=== PATIENT | male | born 1960 | race Caucasian/White ===

== ENCOUNTER → 2019-04-02 07:26 | Outpatient (CLI) | payer MEDICARE, MEDICAID, SELFPAY ==
--- NOTE | 2019-04-02 07:28 | CA_ITS ---
APPROVED REPORT EXAM: Comprehensive 2D, Doppler, and color-flow Echocardiogram Arabic Linguist: Rachelle Dowd RT(R) Ht: 5 ft 6 in Wt: 174lbs BSA: 1.88 BP: 133/87 mmHg Indications: Congestive Heart Failure, CAD, Hyperlipidemia, Hypertension/HDD 2D Dimensions IVSd 0.80 cm M: 0.6-1.2 LVEF (Visual) 64.00 % PWd 0.80 cm M: 0.6 - 1.2 LVDd 3.80 cm M: 4.2 - 5.9 LVDs 2.50 cm M: 2.5 - 4.0 LVOT 2.20 cm (M/F) 1.5-2.5 M-Mode Dimensions LA Diam 3.00 cm (1.9-4.0) Ao Diam 2.80 cm (2.0-3.7) AV Cusp 1.80 cm (1.5-2.6) LV Diastology E/A Ratio 1.1 MED E' 8.09 (< 7 cm/sec) E'/MED E' Ratio 10.90 (>14) LAT E' 9.85 (<10 cm/sec) E/LAT E' Ratio 9.00 (>14) Mitral Valve MV E Max Kyle. 88.40 (40-130 cm/s) MV A Velocity 77.50 (40-130 cm/s) E/A Ratio 1.10 Left Ventricle Left atrium is mildly enlarged, left ventricle is normal size, mild concentric left ventricular hypertrophy, visually estimated ejection fraction 50% with no regional wall motion abnormality, diastolic parameters are within normal range. Right Ventricle Right atrium and right ventricular normal size and contractility. Aortic Valve Aortic valve is minimally thickened and fibrosed, there is no aortic stenosis aortic insufficiency. Mitral Valve Mitral valve is grossly normal, there is no mitral stenosis, there is mild mitral regurgitation. Tricuspid Valve Tricuspid valve is grossly normal, there is mild tricuspid regurgitation. Tricuspid regurgitation jet velocity is inadequate for calculation of the right ventricular systolic pressure. Pulmonic Valve Pulmonic valve is poorly visualized. Great Vessels Aortic root is normal size. Pericardium No significant pericardial effusion noted. Conclusion 1. Normal left ventricular size, mild concentric left ventricular hypertrophy, visually estimated ejection fraction 50% with no regional wall motion abnormality, diastolic parameters are within normal range. 2. Mild mitral and tricuspid regurgitation 3. No significant pericardial effusion noted, inferior vena cava is normal size with normal inspiratory collapse. Electronically signed by : Prince Akhtar, 04/04/2019 16:30:02
--- NOTE | 2019-04-02 07:28 | CA_ITS ---
APPROVED REPORT Firearms Specialist: CT Laterality: Bilateral Study Quality: Adequate Indications: known SALINAS and due f/u Risk Factors Hypertension: Hyperlipidemia CAD, Medications Plavix Doppler Spectral Velocity Analysis ECA (R) 70.60/ cm/s ECA (L) 101.00/ cm/s dICA (R) 90.40/44.00 cm/s dICA (L) 76.70/37.70 cm/s Liz (R) 111.00/50.30 cm/s Liz (L) 66.60/32.70 cm/s pICA (R) 64.50/27.00 cm/s pICA (L) 54.20/22.80 cm/s dCCA (R) 63.40/17.60 cm/s dCCA (L) 66.00/25.10 cm/s pCCA (R) 60.70/18.20 cm/s pCCA (L) 85.60/22.00 cm/s Vert (R) 29.90/ cm/s Vert (L) 66.00/ cm/s ICA/CCA 1.75 ICA/CCA 1.16 Conclusion Duplex evaluation demonstrates stenosis of the right proximal internal carotid artery <20% Duplex evaluation demonstrates stenosis of the left proximal internal carotid artery <20% Duplex evaluation demonstrates antegrade flow of the bilateral Vertebral Arteries. Electronically signed by : Isaak Butts MD 04/03/2019 16:32:10
--- NOTE | 2019-04-02 09:04 | CT_ITS ---
Procedure: CT ANGIO ABDOMEN PELVIS CLINICAL HISTORY: AAA Abdominal aortic aneurysm COMPARISON: No exams were available for comparison TECHNIQUE: IV Contrast: 100ml Optiray 350 Axial images obtained with sagittal and coronal reformats. All CT scans at the facility use one or more dose reduction, viz: automated exposure control, ma/kV adjustment per patient size (including targeted exams where dose is matched to indication, i.e. head), or iterative reconstruction technique. FINDINGS: There is an 8 mm noncalcified nodule in the right lower lobe There is an aortoiliac stent graft present. The graft begins 2 cm cephalad to the level of the renal arteries. There is no evidence of graft leak. Grafts also involve the common iliacs. Surgical clips are present in the inguinal regions. The aorta measures 2.9 cm transverse and 3 cm AP. Superior mesenteric artery and celiac artery have an unremarkable appearance. The graft begins at the level of the superior mesenteric artery. Pertinent non angiographic findings include sigmoid diverticulosis. No evidence of diverticulitis there is mild thickening of the jejunum. This is of questionable clinical significance and mm due to nondistention. IMPRESSION: Status post aortoiliac stent graft as described above with no evidence of endograft leak. Sigmoid diverticulosis Dictated by: Isaak Butts MD 04/03/2019 18:17 Electronically signed by Isaak Butts MD in [place] 04/04/2019 13:41
[2019-04-02 09:47] LABS: Alanine Aminotransferase 33 U/L (12-78); Albumin Level 3.6 gm/dL (3.4-5.0); Alkaline Phosphatase 84 U/L (46-116); Anion Gap 11.9 mEq/L (5-15); Aspartate Amino Transferase 19 U/L (15-37); Bilirubin,Direct 0.1 mg/dL (0.0-0.2); Bilirubin,Indirect 0.2 mg/dL (0.0-0.9); Bilirubin,Total 0.3 mg/dL (0.2-1.0); Blood Urea Nitrogen 11 mg/dL (7-18); Calcium 9.2 mg/dL (8.5-10.1); Carbon Dioxide 31 mmol/L (21.0-32.0); Chloride 104 mmol/L (98-107); Chol/HDL Ratio 8.7 (1-3.5); Cholesterol 296 mg/dL (140-200); Creatinine,Serum 0.93 mg/dL (0.70-1.30); Estimated Glomerular Filt Rate 83 ml/min (>60); GFR (African American) 101 ML/MIN (>60); Glucose 74 mg/dL (74-106); HDL Cholesterol 34 mg/dL (27-67); Potassium 3.9 mmoL/L (3.5-5.1); Sodium 143 mmol/L (136-145); Total Protein,Serum 6.8 gm/dL (6.4-8.2)
[2019-04-02 09:53] LABS: Triglycerides 500 mg/dL (30-200)
== END ==
PROVIDERS: Visit Provider Urology
DX: I11.0 Hypertensive heart disease with heart failure; I25.10 Atherosclerotic heart disease of native coronary artery without angina pectoris; I65.23 Occlusion and stenosis of bilateral carotid arteries; I71.4 Abdominal aortic aneurysm, without rupture; Z86.79 Personal history of other diseases of the circulatory system; Z98.890 Other specified postprocedural states; E78.49 Other hyperlipidemia
CPT/HCPCS: 36415; 74174; 80048; 80061; 80076; 93306; 93880; Q9967

== ENCOUNTER → 2019-04-02 07:32 | Outpatient (CLI) | payer MEDICARE, SELFPAY | PROVIDERS: Visit Provider Urology | DX: I71.4 Abdominal aortic aneurysm, without rupture (principal) ==

== ENCOUNTER → 2020-06-08 09:19 | Outpatient (CLI) | payer MEDICARE, MEDICAID, SELFPAY ==
[2020-06-08 09:44] LABS: Blood Urea Nitrogen 12 mg/dl (9-20); Estimated Glomerular Filt Rate 76 ml/min (>60); GFR (African American) 92 ML/MIN (>60)
--- NOTE | 2020-06-08 09:49 | CT_ITS ---
Procedure: CT ANGIO ABDOMEN CLINICAL HISTORY: Follow-up abdominal aortic aneurysm COMPARISON: CT CT ANGIO ABDOMEN PELVIS from 04/02/2019 TECHNIQUE: IV Contrast: 100ml Isovue 370 Axial images obtained with sagittal and coronal reformats. All CT scans at the facility use one or more dose reduction, viz: automated exposure control, ma/kV adjustment per patient size (including targeted exams where dose is matched to indication, i.e. head), or iterative reconstruction technique. FINDINGS: Status post aortobifem stent graft placement. No evidence of endo graft leak. There is mild dilatation the abdominal aorta at 2.7 cm transverse and 3 cm AP. No evidence aortic stenosis. Surgical clips are present in the right inguinal area. The stent graft overlies the area of the renal arteries and makes it difficult to exclude stenosis at the ostium of the renal artery on the right. The SMA and celiac have an unremarkable appearance. The ostium of the ADAMARIS appears occluded but the ADAMARIS is patent distal to this region secondary to collaterals. There is a 8 mm nodule in the right middle lobe not significantly changed. The liver, spleen, adrenal glands, pancreas, and kidneys have an unremarkable appearance. Bowel gas pattern is nonspecific. There are few small para-aortic lymph nodes not significantly changed. Degenerative disc disease is present at L5-S1 IMPRESSION: Overall no change status post aortobifem stent graft. No evidence of endo graft leak or other acute anomaly. Please see above for detail. Dictated by: Isaak Butts MD 06/11/2020 07:47 Isaak Butts MD in [facility] 06/11/2020 07:47
[2020-06-08 11:10] LABS: Alanine Aminotransferase 32 U/L (12-78); Albumin Level 4.3 g/dl (3.5-5.0); Alkaline Phosphatase 87 U/L (38-126); Aspartate Amino Transferase 34 U/L (17-59); Bilirubin,Direct 0.1 mg/dl (0.0-0.4); Bilirubin,Indirect 0.4 mg/dL (0.0-0.9); Bilirubin,Total 0.5 mg/dl (0.2-1.3); Bilirubin,Unconjugated 0.4 mg/dL (0.0-1.1); HDL Cholesterol 51 mg/dl (40-60); Total Protein,Serum 7.3 g/dl (6.3-8.2)
[2020-06-08 11:22] LABS: Direct LDL Cholesterol 154.55 mg/dL (100-129)
[2020-06-08 11:28] LABS: Chol/HDL Ratio 6.7 (1-3.5); Cholesterol 342 mg/dl (140-200); Triglycerides 604 mg/dl (30-150)
== END ==
PROVIDERS: Urology; PCP Internal Medicine; Visit Provider Nurse Practitioner Family
DX: E78.5 Hyperlipidemia, unspecified (principal); I25.10 Atherosclerotic heart disease of native coronary artery without angina pectoris; I11.0 Hypertensive heart disease with heart failure; I71.4 Abdominal aortic aneurysm, without rupture; I73.9 Peripheral vascular disease, unspecified; Z95.828 Presence of other vascular implants and grafts; I65.23 Occlusion and stenosis of bilateral carotid arteries
CPT/HCPCS: 74175; 80061; 80076; 82565; 84520; Q9967

== ENCOUNTER → 2020-10-11 11:44 | Outpatient (CLI) | payer MEDICARE, MEDICAID, SELFPAY ==
[2020-10-11 12:48] LABS: Alanine Aminotransferase 43 U/L (12-78); Albumin Level 4.2 g/dl (3.5-5.0); Alkaline Phosphatase 71 U/L (38-126); Aspartate Amino Transferase 45 U/L (17-59); Bilirubin,Indirect 0.7 mg/dL (0.0-0.9); Bilirubin,Total 0.7 mg/dl (0.2-1.3); Bilirubin,Unconjugated 0.8 mg/dL (0.0-1.1); Chol/HDL Ratio 7.1 (1-3.5); Cholesterol 278 mg/dl (140-200); HDL Cholesterol 39 mg/dl (40-60); Total Protein,Serum 6.9 g/dl (6.3-8.2)
[2020-10-11 12:53] LABS: Triglycerides 452 mg/dl (30-150)
[2020-10-11 13:00] LABS: Direct LDL Cholesterol 142.85 mg/dL (100-129)
== END ==
PROVIDERS: Visit Provider Nurse Practitioner Family
DX: E78.01 Familial hypercholesterolemia (principal); E78.1 Pure hyperglyceridemia; I11.0 Hypertensive heart disease with heart failure; I25.10 Atherosclerotic heart disease of native coronary artery without angina pectoris; I50.32 Chronic diastolic (congestive) heart failure; I65.23 Occlusion and stenosis of bilateral carotid arteries; I71.4 Abdominal aortic aneurysm, without rupture; I73.9 Peripheral vascular disease, unspecified; Z86.79 Personal history of other diseases of the circulatory system; Z95.828 Presence of other vascular implants and grafts; Z98.890 Other specified postprocedural states
CPT/HCPCS: 36415; 80061; 80076

== ENCOUNTER → 2021-05-11 12:20 | Outpatient (CLI) | payer MEDICARE, MEDICAID, SELFPAY ==
--- NOTE | 2021-05-11 12:33 | XR_ITS ---
PROCEDURE: XR CHEST 2V CLINICAL HISTORY: ex smoker, headache COMPARISON: No exams were available for comparison FINDINGS: The cardiomediastinal silhouette and pulmonary vascularity are within normal limits. The lungs are clear without infiltrates, suspicious nodules, or pleural effusions. No acute bony abnormalities. IMPRESSION: No acute findings. Dictated by: Dr. Garland Clark MD 05/11/2021 12:50 Dr. Garland Clark MD in [facility] 05/11/2021 12:50
[2021-05-11 12:36] LABS: Basophils # 0.1 K/mm3 (0-0.2); Basophils % 1.2 % (0.1-2.0); Eosinophils # 0.2 K/mm3 (0.0-0.4); Eosinophils % 2.4 % (0.1-12.0); Hematocrit 49.3 % (42.0-52.0); Hemoglobin 16.4 g/dL (14.1-18.0); Lymphocytes # 3.2 K/mm3 (0.7-4.5); Lymphocytes % 34.5 % (10-50); Mean Corpuscular HGB Conc 33.3 g/dL (31.8-35.4); Mean Corpuscular Hemoglobin 32.2 pg (27.0-31.2); Mean Corpuscular Volume 96.8 fl (80-94); Mean Platelet Volume 7.3 fl (7.4-10.4); Monocytes # 0.5 K/mm3 (0.1-1.0); Monocytes % 5.4 % (1.7-9.3); Neutrophils # 5.3 K/mm3 (1.8-7.8); Neutrophils % 56.5 % (37.0-80.0); Platelet Count 218 K/mm3 (142-424); Red Cell Distribution Width 12.7 % (11.5-17.5); White Blood Count 9.3 K/mm3 (4.8-10.8)
--- NOTE | 2021-05-11 12:43 | CT_ITS ---
Procedure: CT ANGIO ABDOMEN CLINICAL HISTORY: AAA COMPARISON: CT CT ANGIO ABDOMEN PELVIS from 04/02/[address] ANGIO ABDOMEN from 06/08/2020 TECHNIQUE: IV Contrast: 100ml Isovue 370 Axial images obtained with sagittal and coronal reformats. All CT scans at the facility use one or more dose reduction, viz: automated exposure control, ma/kV adjustment per patient size (including targeted exams where dose is matched to indication, i.e. head), or iterative reconstruction technique. FINDINGS: Patent bifurcated aortic endograft. No definite evidence of endoleak although there is hyperintensity in a ring-like configuration at the periphery of the excluded aneurysm, this most likely represents intimal calcification and has been stable in configuration since 2019 (however there is no non-contrasted image for comparison). The bilateral external and internal iliac arteries are patent and visualized extent. The celiac, hepatic, right hepatic, left hepatic splenic arteries are all patent. The SMA is patent. The ADAMARIS is patent. Heart is not enlarged. No hepatic lesions are identified. Gallbladder appears unremarkable. Spleen is unremarkable. Kidneys are unremarkable. Ureters are unremarkable and visualized extent. Adrenal glands are unremarkable pancreas is unremarkable. GE junction and stomach are unremarkable. Visualized extent of small bowel and colon is unremarkable except for sigmoid diverticulosis. There is no lymphadenopathy. Soft tissues appear unremarkable. Lung bases appear unremarkable. There is lumbar spondylosis with vacuum disc phenomenon at L4-5 and severe disc space narrowing at L5-S1 with cortical endplate changes.. IMPRESSION: 1. Patent bifurcated aortic endograft with no definite endoleak. 2. Sigmoid diverticulosis. 3. Lumbar spondylosis with degenerative disc disease at L4-5 and L5-S1. Dictated by: Sera Young MD 05/11/2021 15:01 Sera Young MD in [place] 05/11/2021 15:01
--- NOTE | 2021-05-11 12:43 | CT_ITS ---
Procedure: CT ANGIO HEAD CLINICAL HISTORY: CARDOZO, blurred vision, AAA repair, FH of brain aneury COMPARISON: No exams were available for comparison TECHNIQUE: IV Contrast: 100ml Isovue 370 Axial images obtained with sagittal and coronal reformats. All CT scans at the facility use one or more dose reduction, viz: automated exposure control, ma/kV adjustment per patient size (including targeted exams where dose is matched to indication, i.e. head), or iterative reconstruction technique. FINDINGS: The left vertebral artery is dominant. There is a hypoplastic right vertebral artery. There is minimal calcific atherosclerosis of the cavernous segments of the internal carotid arteries. There is likely a tiny 2 millimeter left PCOM aneurysm which is not well appreciated on maximal intensity projection reconstructions. Dural venous sinuses are patent. Orbits are unremarkable. Sinuses are clear. No intraparenchymal lesions are noted. There is no hydrocephalus or midline shift. Palmer-white matter differentiation is preserved. There is no edema. No evidence of prior infarctions. Visualized soft tissues appear unremarkable. Visualized osseous structures appear unremarkable. There is no intracranial intra or extra-axial hemorrhage. IMPRESSION: Probable 2mm left PCOM aneurysm, not well seen on MIP reconstructions. Dictated by: Sera Young MD 05/11/2021 14:47 Sera Young MD in [place] 05/11/2021 14:47
[2021-05-11 12:44] LABS: Alanine Aminotransferase 40 U/L (12-78); Albumin Level 4.3 g/dl (3.5-5.0); Alkaline Phosphatase 71 U/L (38-126); Anion Gap 9.4 mEq/L (5-15); Aspartate Amino Transferase 45 U/L (17-59); Bilirubin,Direct 0.5 mg/dl (0.0-0.4); Bilirubin,Indirect 0.1 mg/dL (0.0-0.9); Bilirubin,Total 0.6 mg/dl (0.2-1.3); Bilirubin,Unconjugated 0.1 mg/dL (0.0-1.1); Blood Urea Nitrogen 9 mg/dl (9-20); Carbon Dioxide 33 mmol/L (22.0-30.0); Chloride 104 mmol/L (98-107); Chol/HDL Ratio 4.7 (1-3.5); Cholesterol 220 mg/dl (140-200); Creatine Kinase 54 U/L (55-170); Estimated Glomerular Filt Rate 98 ml/min (>60); GFR (African American) 119 ML/MIN (>60); Glucose 119 mg/dl (74-100); HDL Cholesterol 47 mg/dl (40-60); Potassium 4.4 mmoL/L (3.5-5.1); Sodium 142 mmol/L (136-145); Total Protein,Serum 7.5 g/dl (6.3-8.2); Triglycerides 338 mg/dl (30-150); VLDL Cholesterol 68 mg/dL (0-40)
[2021-05-11 12:55] LABS: Direct LDL Cholesterol 86.94 mg/dL (100-129)
[2021-05-11 14:30] LABS: Hemoglobin A1C 5.4 % (4.0-6.0)
== END ==
PROVIDERS: PCP Internal Medicine; Visit Provider Physician Assistant
DX: R73.03 Prediabetes (principal); E78.1 Pure hyperglyceridemia; E78.5 Hyperlipidemia, unspecified; I11.0 Hypertensive heart disease with heart failure; I20.9 Angina pectoris, unspecified; I50.30 Unspecified diastolic (congestive) heart failure; I65.29 Occlusion and stenosis of unspecified carotid artery; I71.4 Abdominal aortic aneurysm, without rupture; I73.9 Peripheral vascular disease, unspecified; R06.00 Dyspnea, unspecified; Z86.79 Personal history of other diseases of the circulatory system; Z95.828 Presence of other vascular implants and grafts; Z98.890 Other specified postprocedural states; Z87.891 Personal history of nicotine dependence; H53.8 Other visual disturbances; R51.9 Headache, unspecified
CPT/HCPCS: 36415; 70496; 71046; 74175; 80048; 80061; 80076; 82550; 83036; 85025; Q9967

== ENCOUNTER → 2021-10-26 15:18 | Outpatient (CLI) | payer MEDICARE, MEDICAID, SELFPAY ==
[2021-10-26 15:47] LABS: Basophils # 0.2 K/mm3 (0-0.2); Basophils % 2.1 % (0.1-2.0); Eosinophils # 0.2 K/mm3 (0.0-0.4); Eosinophils % 1.9 % (0.1-12.0); Hematocrit 47.6 % (42.0-52.0); Hemoglobin 15.9 g/dL (14.1-18.0); Lymphocytes % 35.4 % (10-50); Mean Corpuscular HGB Conc 33.5 g/dL (31.8-35.4); Mean Corpuscular Hemoglobin 32.4 pg (27.0-31.2); Mean Corpuscular Volume 96.8 fl (80-94); Mean Platelet Volume 8.2 fl (7.4-10.4); Monocytes # 0.6 K/mm3 (0.1-1.0); Monocytes % 6.7 % (1.7-9.3); Neutrophils # 4.6 K/mm3 (1.8-7.8); Neutrophils % 53.9 % (37.0-80.0); Platelet Count 263 K/mm3 (142-424); Red Blood Count 4.92 M/mm3 (4.60-6.20); Red Cell Distribution Width 13.3 % (11.5-17.5); White Blood Count 8.5 K/mm3 (4.8-10.8)
[2021-10-26 16:27] LABS: Alanine Aminotransferase 48 U/L (12-78); Albumin Level 4.5 g/dl (3.5-5.0); Alkaline Phosphatase 76 U/L (38-126); Anion Gap 9.3 mEq/L (5-15); Aspartate Amino Transferase 49 U/L (17-59); Bilirubin,Direct 0.2 mg/dl (0.0-0.4); Bilirubin,Indirect 0.6 mg/dL (0.0-0.9); Bilirubin,Total 0.8 mg/dl (0.2-1.3); Bilirubin,Unconjugated 0.5 mg/dL (0.0-1.1); Blood Urea Nitrogen 16 mg/dl (9-20); Calcium 9.8 mg/dl (8.4-10.2); Carbon Dioxide 30 mmol/L (22.0-30.0); Chloride 105 mmol/L (98-107); Chol/HDL Ratio 4.1 (1-3.5); Cholesterol 186 mg/dl (140-200); Estimated Glomerular Filt Rate 86 ml/min (>60); GFR (African American) 104 ML/MIN (>60); Glucose 97 mg/dl (74-100); HDL Cholesterol 45 mg/dl (40-60); Magnesium 1.8 mg/dl (1.6-2.3); Potassium 4.3 mmoL/L (3.5-5.1); Sodium 140 mmol/L (136-145); Total Protein,Serum 6.9 g/dl (6.3-8.2)
[2021-10-26 16:38] LABS: Direct LDL Cholesterol 65.21 mg/dL (100-129)
[2021-10-26 16:44] LABS: Free T4 (Free Thyroxine) 0.85 ng/dl (0.78-2.19)
[2021-10-26 16:49] LABS: Triglycerides 413 mg/dl (30-150)
[2021-10-26 16:58] LABS: Thyroid Stimulating Hormone 0.05 uIU/mL (0.465-4.68)
== END ==
PROVIDERS: Visit Provider Internal Medicine
DX: E78.1 Pure hyperglyceridemia (principal); E78.5 Hyperlipidemia, unspecified; I11.0 Hypertensive heart disease with heart failure; I25.10 Atherosclerotic heart disease of native coronary artery without angina pectoris; I71.4 Abdominal aortic aneurysm, without rupture; I73.9 Peripheral vascular disease, unspecified; R51.9 Headache, unspecified; R93.89 Abnormal findings on diagnostic imaging of other specified body structures; Z86.79 Personal history of other diseases of the circulatory system; Z98.890 Other specified postprocedural states
CPT/HCPCS: 36415; 80048; 80061; 80076; 83735; 84439; 84443; 85025

== ENCOUNTER → 2021-11-04 14:27 | Outpatient (CLI) | payer MEDICARE, MEDICAID, SELFPAY ==
--- NOTE | 2021-11-04 14:35 | US_ITS ---
FINAL REPORT CLINICAL HISTORY: hyperthyroidism FINDINGS: THYROID ULTRASOUND Sonographic images of the thyroid was obtained. The right lobe of the thyroid measures 3.6 x 1.4 x 1.0 cm. The left lobe of the thyroid measures 3.4 x 1.2 x 0.9 cm. The isthmus measures 4 mm. IMPRESSION: Unremarkable thyroid evaluation Reviewed, Interpreted and Dictated by Jesse Doty III, MD Transcribed by Tangela Green Authenticated by Jesse Doty III, MD on 11/04/2021 04:05:10 PM [facility]
--- NOTE | 2021-11-04 15:08 | MR_ITS ---
PROCEDURE INFORMATION: Exam: MRA Head Without Contrast; Arteriography Exam date and time: 11/04/2021 4:01 PM Age: 61 years old Clinical indication: Pain; Headache; Additional info: Abnormal cta head, probable 2 mm l-pcom aneurysm. PT states brain aneurysm. Posterior headache with posterior head pain. Episodes of blacking out. TECHNIQUE: Imaging protocol: Magnetic resonance angiography head without contrast. Yart-yg-nzcofl (TOF) technique was utilized for this exam. Exam focused on the arteries. COMPARISON: CT ANGIO HEAD 05/11/2021 1:28 PM FINDINGS: ANTERIOR CIRCULATION: Right internal carotid artery: Intracranial segment is patent with no significant stenosis. No aneurysm. Right middle cerebral artery: No occlusion or significant stenosis. No aneurysm. Right anterior cerebral artery: No occlusion or significant stenosis. No aneurysm. Left internal carotid artery: Intracranial segment is patent with no significant stenosis. No aneurysm. Left middle cerebral artery: No occlusion or significant stenosis. No aneurysm. Left anterior cerebral artery: No occlusion or significant stenosis. No aneurysm. POSTERIOR CIRCULATION: Right vertebral artery: The right vertebral artery is congenitally hypoplastic but patent. Left vertebral artery: No occlusion or significant stenosis. No aneurysm. Basilar artery: No occlusion or significant stenosis. No aneurysm. Right posterior cerebral artery: No occlusion or significant stenosis. No aneurysm. Left posterior cerebral artery: No occlusion or significant stenosis. No aneurysm. Left posterior communicating artery: Infundibular origin of the left posterior communicating artery is present. There is no aneurysm. IMPRESSION: No acute abnormality. No aneurysm.
== END ==
PROVIDERS: Visit Provider Internal Medicine Cardiovascular Disease
DX: E05.90 Thyrotoxicosis, unspecified without thyrotoxic crisis or storm (principal); R93.89 Abnormal findings on diagnostic imaging of other specified body structures
CPT/HCPCS: 70544; 76536

== ENCOUNTER → 2022-05-18 12:00 | Outpatient (CLI) | payer MEDICARE, MEDICAID, SELFPAY ==
[2022-05-18 12:47] LABS: Blood Urea Nitrogen 10 mg/dl (9-20); Estimated Glomerular Filt Rate 86 ml/min (>60); GFR (African American) 103 ML/MIN (>60)
--- NOTE | 2022-05-18 12:54 | CT_ITS ---
FINAL REPORT TECHNIQUE: Pre-and postcontrast images of the abdomen were performed by computed tomography. Extensive 3-D reconstruction images were performed. A CTA was performed. This study was performed with techniques to keep radiation doses as low as reasonably achievable (ALARA). Individualized dose reduction techniques using automated exposure control or adjustment of mA and/or kV according to the patient''s size were employed. CLINICAL HISTORY: AAA repair FOLLOW-UP COMPARISON: 05/11/2021 FINDINGS: ABDOMEN: There is mild bibasilar atelectasis. Precontrast images demonstrate no evidence of nephrolithiasis. No adrenal masses are identified. The liver, spleen and pancreas are unremarkable. The appendix is normal. CTA: An aortic stent graft is present and patent. There is no evidence of graft endoleak. Findings appear stable since previous. The SMA, celiac axis, and ADAMARIS are patent. There is no significant stenosis or calcification. The renal arteries are patent bilaterally. IMPRESSION: Aortic stent graft is patent without evidence of endoleak. Reviewed, Interpreted and Dictated by Jesse Doty III, MD Transcribed by Maeve Torres Authenticated and [facility]
== END ==
PROVIDERS: Visit Provider Nurse Practitioner
DX: E78.01 Familial hypercholesterolemia (principal); E78.1 Pure hyperglyceridemia; I11.0 Hypertensive heart disease with heart failure; I25.10 Atherosclerotic heart disease of native coronary artery without angina pectoris; I50.32 Chronic diastolic (congestive) heart failure; I65.23 Occlusion and stenosis of bilateral carotid arteries; I73.9 Peripheral vascular disease, unspecified; Z86.79 Personal history of other diseases of the circulatory system; Z95.828 Presence of other vascular implants and grafts; Z98.890 Other specified postprocedural states; I71.40 Abdominal aortic aneurysm, without rupture, unspecified
CPT/HCPCS: 36415; 74175; 82565; 84520; Q9967

== ENCOUNTER → 2022-11-06 10:52 | Outpatient (CLI) | payer MEDICARE, MEDICAID, SELFPAY ==
[2022-11-06 11:36] LABS: Basophils # 0.1 K/mm3 (0-0.2); Basophils % 1.3 % (0.1-2.0); Eosinophils # 0.2 K/mm3 (0.0-0.4); Eosinophils % 2.6 % (0.1-12.0); Hematocrit 47.2 % (42.0-52.0); Hemoglobin 15.6 g/dL (14.1-18.0); Lymphocytes # 2.7 K/mm3 (0.7-4.5); Lymphocytes % 30.9 % (10-50); Mean Corpuscular Hemoglobin 31.5 pg (27.0-31.2); Mean Corpuscular Volume 95.4 fl (80-94); Mean Platelet Volume 7.8 fl (7.4-10.4); Monocytes # 0.5 K/mm3 (0.1-1.0); Neutrophils # 5.1 K/mm3 (1.8-7.8); Neutrophils % 59.2 % (37.0-80.0); Platelet Count 218 K/mm3 (142-424); Red Blood Count 4.95 M/mm3 (4.60-6.20); White Blood Count 8.6 K/mm3 (4.8-10.8)
[2022-11-06 12:07] LABS: Alanine Aminotransferase 38 U/L (12-78); Albumin Level 4.5 g/dl (3.5-5.0); Alkaline Phosphatase 67 U/L (38-126); Anion Gap 8.7 mEq/L (5-15); Aspartate Amino Transferase 40 U/L (17-59); Bilirubin,Indirect 0.7 mg/dL (0.0-0.9); Bilirubin,Total 0.7 mg/dl (0.2-1.3); Bilirubin,Unconjugated 0.8 mg/dL (0.0-1.1); Blood Urea Nitrogen 13 mg/dl (9-20); Calcium 9.6 mg/dl (8.4-10.2); Carbon Dioxide 33 mmol/L (22.0-30.0); Chloride 103 mmol/L (98-107); Chol/HDL Ratio 4.8 (1-3.5); Cholesterol 240 mg/dl (140-200); Estimated Glomerular Filt Rate 76 ml/min (>60); GFR (African American) 92 ML/MIN (>60); Glucose 105 mg/dl (74-100); HDL Cholesterol 50 mg/dl (40-60); Magnesium 2.1 mg/dl (1.6-2.3); Potassium 4.7 mmoL/L (3.5-5.1); Sodium 140 mmol/L (136-145); Total Protein,Serum 7.3 g/dl (6.3-8.2)
[2022-11-06 12:18] LABS: Direct LDL Cholesterol 78.56 mg/dL (100-129)
[2022-11-06 12:19] LABS: Triglycerides 608 mg/dl (30-150)
[2022-11-06 12:23] LABS: Free T4 (Free Thyroxine) 0.95 ng/dl (0.78-2.19)
[2022-11-06 12:38] LABS: Thyroid Stimulating Hormone 1.67 uIU/mL (0.465-4.68)
== END ==
PROVIDERS: Visit Provider Nurse Practitioner
DX: I25.10 Atherosclerotic heart disease of native coronary artery without angina pectoris; E78.01 Familial hypercholesterolemia; E78.1 Pure hyperglyceridemia; I11.0 Hypertensive heart disease with heart failure; I50.32 Chronic diastolic (congestive) heart failure; I65.23 Occlusion and stenosis of bilateral carotid arteries; I73.9 Peripheral vascular disease, unspecified; Z86.79 Personal history of other diseases of the circulatory system; Z95.828 Presence of other vascular implants and grafts; Z98.890 Other specified postprocedural states
CPT/HCPCS: 36415; 80048; 80061; 80076; 83735; 84439; 84443; 85025

== ENCOUNTER → 2023-05-08 11:16 | Outpatient (CLI) | payer MEDICARE, OTHER, SELFPAY ==
--- NOTE | 2023-05-08 11:31 | CT_ITS ---
FINAL REPORT TECHNIQUE: Pre-and postcontrast images of the abdomen were performed by computed tomography. Extensive 3-D reconstruction images were performed. A CTA was performed. This study was performed with techniques to keep radiation doses as low as reasonably achievable (ALARA). Individualized dose reduction techniques using automated exposure control or adjustment of mA and/or kV according to the patient''s size were employed. CLINICAL HISTORY: check endovascular stent for leak. patient states he hasnt had stents check for a few years. placed 2009 COMPARISON: 05/18/2022 FINDINGS: ABDOMEN: The lung bases are clear. Precontrast images demonstrate no evidence of nephrolithiasis. No adrenal masses are identified. The liver, spleen and pancreas are unremarkable. There is colonic diverticulosis. CTA: Aortic stent graft is patent. Aneurysm sac measures up to 3.5 cm in diameter and appears stable. The SMA, and celiac axis are patent. The proximal ADAMARIS is occluded. There is mild stenosis at the origin of the right renal artery, stable. The left renal artery is patent. The common iliacs are patent. IMPRESSION: Aortic stent graft is patent. Proximal ADAMARIS is occluded. Reviewed, Interpreted and Dictated by Jesse Doty III, MD Transcribed by Maeve Torres Authenticated and [facility]
[2023-05-08 11:34] LABS: Basophils # 0.1 K/mm3 (0-0.2); Basophils % 0.9 % (0.1-2.0); Eosinophils # 0.2 K/mm3 (0.0-0.4); Eosinophils % 2.2 % (0.1-12.0); Hematocrit 45.7 % (42.0-52.0); Hemoglobin 15.9 g/dL (14.1-18.0); Lymphocytes % 30.6 % (10-50); Mean Corpuscular HGB Conc 34.9 g/dL (31.8-35.4); Mean Corpuscular Hemoglobin 33.1 pg (27.0-31.2); Mean Corpuscular Volume 94.9 fl (80-94); Mean Platelet Volume 7.9 fl (7.4-10.4); Monocytes # 0.5 K/mm3 (0.1-1.0); Monocytes % 5.3 % (1.7-9.3); Platelet Count 214 K/mm3 (142-424); Red Blood Count 4.82 M/mm3 (4.60-6.20); White Blood Count 9.9 K/mm3 (4.8-10.8)
[2023-05-08 12:11] LABS: Alanine Aminotransferase 40 U/L (12-78); Albumin Level 4.4 g/dl (3.5-5.0); Alkaline Phosphatase 69 U/L (38-126); Anion Gap 12.3 mEq/L (5-15); Aspartate Amino Transferase 44 U/L (17-59); Bilirubin,Direct 0.1 mg/dl (0.0-0.4); Bilirubin,Indirect 0.4 mg/dL (0.0-0.9); Bilirubin,Total 0.5 mg/dl (0.2-1.3); Bilirubin,Unconjugated 0.4 mg/dL (0.0-1.1); Blood Urea Nitrogen 11 mg/dl (9-20); Calcium 10.2 mg/dl (8.4-10.2); Carbon Dioxide 29 mmol/L (22.0-30.0); Chloride 102 mmol/L (98-107); Chol/HDL Ratio 4.6 (1-3.5); Cholesterol 230 mg/dl (140-200); Estimated Glomerular Filt Rate 85 ml/min (>60); GFR (African American) 103 ML/MIN (>60); Glucose 118 mg/dl (74-100); HDL Cholesterol 50 mg/dl (40-60); Magnesium 1.9 mg/dl (1.6-2.3); Potassium 4.3 mmoL/L (3.5-5.1); Sodium 139 mmol/L (136-145); Total Protein,Serum 7.2 g/dl (6.3-8.2)
[2023-05-08 12:21] LABS: Triglycerides 683 mg/dl (30-150)
[2023-05-08 12:22] LABS: Direct LDL Cholesterol 66.37 mg/dL (100-129)
[2023-05-08 12:28] LABS: Free T4 (Free Thyroxine) 0.94 ng/dl (0.78-2.19)
[2023-05-08 12:44] LABS: Thyroid Stimulating Hormone 1.17 uIU/mL (0.465-4.68)
== END ==
PROVIDERS: Visit Provider Physician Assistant
DX: I25.10 Atherosclerotic heart disease of native coronary artery without angina pectoris; I11.0 Hypertensive heart disease with heart failure; I50.30 Unspecified diastolic (congestive) heart failure; I65.29 Occlusion and stenosis of unspecified carotid artery; I73.9 Peripheral vascular disease, unspecified; E78.01 Familial hypercholesterolemia; E78.1 Pure hyperglyceridemia; E78.5 Hyperlipidemia, unspecified; Z86.79 Personal history of other diseases of the circulatory system; Z95.828 Presence of other vascular implants and grafts; Z87.891 Personal history of nicotine dependence
CPT/HCPCS: 36415; 74175; 80048; 80061; 80076; 83735; 84439; 84443; 85025; Q9967

== ENCOUNTER 2023-11-14 21:45 | Observation (INO) | payer MEDICARE, SELFPAY ==
--- NOTE | 2023-11-14 21:44 | ECG_ITS ---
APPROVED REPORT Exam: Resting ECG HR:63 bpm ECG Measurements Heart Rate 63 AXES AL 184 P 54 QRSd 88 QRS 24 QT 405 T 7 QTc 412 Conclusion SINUS RHYTHM NORMAL ECG Electronically signed by : NEELA RICHARD, 11/15/2023 14:59:28
--- NOTE | 2023-11-14 21:54 | XR_ITS ---
PROCEDURE INFORMATION: Exam: XR Chest Exam date and time: 11/14/2023 10:02 PM Age: 63 years old Clinical indication: Pain; Chest pressure; Additional info: Cp SOA TECHNIQUE: Imaging protocol: Radiologic exam of the chest. Views: 1 view. COMPARISON: CR XR CHEST 2V 05/11/2021 12:34 PM FINDINGS: Lungs: Unremarkable. No consolidation. Pleural spaces: Unremarkable. No pleural effusion. No pneumothorax. Heart/Mediastinum: Unremarkable. No cardiomegaly. Bones/joints: Unremarkable. IMPRESSION: No acute findings.
[2023-11-14 22:03] LABS: Basophils # 0.2 K/mm3 (0-0.2); Basophils % 1.5 % (0.1-2.0); Eosinophils # 0.2 K/mm3 (0.0-0.4); Eosinophils % 2.1 % (0.1-12.0); Hematocrit 51.3 % (42.0-52.0); Hemoglobin 16.3 g/dL (14.1-18.0); Lymphocytes # 3.4 K/mm3 (0.7-4.5); Lymphocytes % 31.3 % (10-50); Mean Corpuscular HGB Conc 31.7 g/dL (31.8-35.4); Mean Corpuscular Hemoglobin 31.2 pg (27.0-31.2); Mean Corpuscular Volume 98.4 fl (80-94); Mean Platelet Volume 7.8 fl (7.4-10.4); Monocytes # 0.6 K/mm3 (0.1-1.0); Monocytes % 5.3 % (1.7-9.3); Neutrophils # 6.4 K/mm3 (1.8-7.8); Neutrophils % 59.8 % (37.0-80.0); Platelet Count 245 K/mm3 (142-424); Red Blood Count 5.21 M/mm3 (4.60-6.20); Red Cell Distribution Width 13.2 % (11.5-17.5); White Blood Count 10.7 K/mm3 (4.8-10.8)
[2023-11-14 22:04] VITALS: BP 147/95; PULSE 61; RESP 18; TEMP 36.7; O2SAT 98; BMI 30.6
[2023-11-14] MEDS: ASPIRIN 81MG CHEWABLE TABLET 324 MG PO (22:06)
[2023-11-14 22:12] LABS: Chloride 107 mmol/L (98-107); Potassium 3.9 mmoL/L (3.5-5.1); Sodium 140 mmol/L (136-145)
[2023-11-14 22:15] LABS: Alanine Aminotransferase 36 U/L (12-78); Albumin Level 4.5 g/dl (3.5-5.0); Albumin/Globulin Ratio 1.6 (1.1-1.8); Alkaline Phosphatase 67 U/L (38-126); Anion Gap 5.9 mEq/L (5-15); Aspartate Amino Transferase 41 U/L (17-59); Bilirubin,Total 0.9 mg/dl (0.2-1.3); Blood Urea Nitrogen 10 mg/dl (9-20); Calcium 9.8 mg/dl (8.4-10.2); Carbon Dioxide 31 mmol/L (22.0-30.0); Estimated Glomerular Filt Rate 75 ml/min (>60); GFR (African American) 91 ML/MIN (>60); Globulin 2.9 g/dL (1.3-3.2); Glucose 111 mg/dl (74-100); Total Protein,Serum 7.4 g/dl (6.3-8.2)
[2023-11-14 22:25] LABS: NT Pro Brain Natriuretic Pep. 146 pg/mL (0-125)
--- NOTE | 2023-11-14 22:25 | HMH.EDCP ---
Discharge Plan Disposition Patient Disposition: Admitted Condition: Fair Clinical Impressions Clinical Impression: Angina at rest, Chest pain Discharge ED Provider: Quan Burleson HPI General Chief Complaint: Chest Pain Stated Complaint: Chest pain Time Seen by Provider: 11/14/23 21:53 Mode of Arrival: Ambulatory Source of Information: Patient Limitations: No Limitations Description of Symptoms (Recalled from ER Triage Doc. by RN): 63M ambulatory to ED with c/o midsternal CP radiating into his back starting @ 2 pm today. Pt took 2 nitro at that time which relieved his cp. Pt reports SOA and HTN at that time as well. Pt reports his BP was 190/100. Pt states around 6pm tonight he started to feel worse with pain in his left armpit radiating down his left arm and nausea. Pain has now resolved but pt is concerned. Pt reports history of cardiac stents and AAA which was repaired in 2018. Pt sees Dr Becerra for cardiology. History of Present Illness HPI narrative: Please note that above description of symptoms, in this electronic medical record under categorization of recalled from ER triage doctor by RN are reflective of an initial nursing assessment, however, is not reflective of my full history and physical exam that was personally taken and clarified. Consequentially, this preceding description of symptoms, which may include the patient's categorized chief complaint in the EMR, do not reflect my personal clinical impression, and the ultimate description of history of present illness and patient stated complaints should be deferred to this section of the note. Unless stated otherwise or congruent with this section of the note, additional signs, symptoms, or incongruence should be interpreted as inaccurate with my clinical impression. Related Data Home Medications Medication Instructions Recorded Confirmed cholecalciferol (vitamin D3) 25 1,000 unit PO DAILY 05/08/23 11/15/23 mcg (1,000 unit) tablet (Vitamin D3) haider root extract 15 mg chewable See Rx Instructions .Route .COMPLEX 05/08/23 11/15/23 tablet Previous Rx's Medication Instructions Recorded aspirin 81 mg tablet,delayed 81 mg PO DAILY #90 tabs 12/29/19 release (Adult Low Dose Aspirin) carvedilol 25 mg tablet See Rx Instructions .Route 01/11/23 .COMPLEX #180 tabs isosorbide mononitrate 30 mg 15 mg (1/2 x 30 mg) PO DAILY #90 06/29/23 tablet,extended release 24 hr tabs nitroglycerin 0.4 mg sublingual 0.4 mg sublingual Q5M PRN chest 01/11/23 tablet pain #25 tabs Vascepa 1 gram capsule (icosapent See Rx Instructions .Route 03/29/23 ethyl) .COMPLEX #180 caps ascorbic acid (vitamin C) 1,000 mg 1 g PO DAILY #30 tabs 05/08/23 tablet (Vitamin C) evolocumab 140 mg/mL subcutaneous See Rx Instructions .Route 07/17/23 pen injector (Repatha Bhupinderick) .COMPLEX #2 mL Allergies Allergy/AdvReac Type Severity Reaction Status Date / Time clopidogrel [From Plavix] Allergy Mild Verified 05/08/23 10:38 Ikxvqbb-DPM-XvA Reductase Allergy Mild Verified 05/08/23 10:38 Inhibitor [Ozcwmoh-Qcp-Vii Reductase Inhibitor] Penicillins Allergy Verified 05/08/23 10:38 gemfibrozil AdvReac Severe leg pain Verified 05/08/23 10:38 losartan AdvReac Verified 05/08/23 10:38 Sulfa (Sulfonamide AdvReac Verified 05/08/23 10:38 Antibiotics) [facility] Disclaimer: The information contained in this section may have been updated after the patient was seen, as this information can be updated by other users. Medical History Blurry vision Headache Dyspnea Hypertriglyceridemia CAD (coronary artery disease) PAD (peripheral artery disease) Abdominal aortic aneurysm Carotid artery stenosis Diastolic heart failure Coronary arteriosclerosis Hypertensive heart disease with congestive heart failure Hyperlipemia Surgical History History of endovascular stent graft for abdominal aortic aneurysm (AAA) Family History (Updated 11/14/23 @ 23:57 by Winifred Gtoti RN) Sister Diabetes Social History (Updated 11/14/23 @ 23:55 by Winifred Gotti RN) Smoking Status: Former smoker alcohol intake: never substance use type: denies use current occupational status: disabled Travel in the last 8 weeks: None household members: family housing: house ROS Obtained: Yes All systems reviewed & no additional complaints except as documented Physical Exam General General appearance: alert Neck Neck exam: Present trachea midline Chest Chest inspection: Present normal inspection and symmetric chest wall rise Respiratory Respiratory exam: Present normal lung sounds bilaterally; Absent respiratory distress, wheezes, stridor, accessory muscle use or prolonged expiratory phase Cardiovascular Cardiovascular exam: Present regular rate and normal rhythm Extremities Exam Extremities exam: Absent edema Neurological Exam Neurological exam: Present alert, oriented X3 and CN II-XII intact Skin Skin exam: Present warm and dry; Absent cyanosis, diaphoresis or pallor HEART Score HEART Score HEART Score assessment performed?: Yes History (anamnesis): Moderately suspicious ECG: Normal Age: 45-65 years Risk factors: Atherosclerosis history Troponin: </= normal limit HEART Score: 4 Critical Care Critical Care Time Critical Care Time: No Medical Decision Making Medical Records Medical records reviewed: Yes I reviewed the patient's medical records. Edwin Inquiry Pt receiving controlled substance: No Edwin was queried for this patient: No Vital Signs Vital Signs: 11/14/23 22:04 11/14/23 22:52 11/14/23 23:26 Temperature 98.0 F 98.7 F Temperature Source Oral Oral Pulse Rate 58 L 80 Pulse Rate [Left Radial] 61 Respiratory Rate 18 18 Blood Pressure 151/83 H Blood Pressure [Right Arm] 147/95 H Blood Pressure Mean [Right Arm] 112 Blood Pressure Source Automatic Cuff Blood Pressure Source [Right Arm] Automatic Cuff Blood Pressure Position Sitting Blood Pressure Position [Right Arm] Sitting 02 Sat by Pulse Oximetry 98 Oxygen Delivery Method Room Air Room Air Lab Data Labs: Lab Results 11/14/23 21:45: WBC 10.7, RBC 5.21, Hgb 16.3, Hct 51.3, MCV 98.4 H, MCH 31.2, MCHC 31.7 L, RDW 13.2, Plt Count 245, MPV 7.8, Neut % (Auto) 59.8, Lymph % (Auto) 31.3, [place] % (Auto) 5.3, Eos % (Auto) 2.1, Baso % (Auto) 1.5, Neut # (Auto) 6.4, Lymph # (Auto) 3.4, [place] # (Auto) 0.6, Eos # (Auto) 0.2, Baso # (Auto) 0.2, Sodium 140, Potassium 3.9, Chloride 107, Carbon Dioxide 31 H, Anion Gap 5.9, BUN 10, Creatinine 1.00, Estimated GFR 75, Est GFR ( Amer) 91, Glucose 111 H, Calcium 9.8, Total Bilirubin 0.9, AST 41, ALT 36, Alkaline Phosphatase 67, Troponin I < 0.01, NT-Pro-B Natriuret Pep 146 H, Total Protein 7.4, Albumin 4.5, Globulin 2.9, Albumin/Globulin Ratio 1.6 11/14/23 21:45 11/14/23 21:45 Response Orders (Tests/Meds): ED MEDICATIONS Generic Name Dose Route Start Last Admin Trade Name Celeste PRN Reason Stop Dose Admin Enoxaparin Sodium 40 mg 11/15/23 09:00 Enoxaparin 40mg/0.4ml Syringe SQ 12/15/23 08:59 DAILY JW Sodium Chloride 1,000 mls @ 75 mls/hr 11/14/23 23:00 Sod Chlor 0.9% 1000ml Bag IV 12/14/23 22:59 .[id number] JW Morphine Sulfate 2 mg 11/14/23 22:55 Morphine 2mg/Ml Syringe IV 12/14/23 22:54 Q2HP PRN Severe Pain (7-10) Nicotine 21 mg 11/14/23 22:55 Nicotine 21mg/24hr Patch TD 12/14/23 22:54 DAILYP PRN Nicotine Cravings Nitroglycerin 0.4 mg 11/14/23 21:54 Nitroglycerin 0.4mg Sl Tablet SL 11/15/23 21:54 Q5MINP PRN Chest Pain Ondansetron HCl 4 mg 11/14/23 22:55 Ondansetron 4mg/2ml Vial IV 12/14/23 22:54 Q8HP PRN Nausea Pantoprazole Sodium 40 mg 11/15/23 09:00 Pantoprazole 40mg Tablet PO 12/15/23 08:59 DAILY JW Discontinued Medications Generic Name Dose Route Start Last Admin Trade Name Celeste PRN Reason Stop Dose Admin Aspirin 324 mg 11/14/23 21:54 11/14/23 22:06 Aspirin 81mg Chewable Tablet PO 11/14/23 21:55 324 mg ONCE ONE Administration ORDERS Category Date Time Status Cardiology Consult [Consult to Cardiology] [CONS] Cons 11/14/23 22:55 Active Routine XR chest portable Stat Exams 11/14/23 21:54 Completed Complete Blood Count Auto Diff AMLAB Lab 11/15/23 06:00 Ordered Complete Blood Count Auto Diff Stat Lab 11/14/23 21:45 Completed Comprehensive Metabolic Panel AMLAB Lab 11/15/23 06:00 Ordered Comprehensive Metabolic Panel Stat Lab 11/14/23 21:45 Completed Magnesium AMLAB Lab 11/15/23 06:00 Ordered NT Pro Brain Natriuretic Pep. Stat Lab 11/14/23 21:45 Completed Troponin I Q3H Lab 11/14/23 22:00 Ordered Troponin I Q3H Lab 11/15/23 01:00 Ordered Troponin I Q3H Lab 11/15/23 04:00 Ordered Troponin I Stat Lab 11/14/23 21:45 Ordered MDM Narrative Medical Decision Narrative: 63-year-old male history of CAD status post stenting, AAA status postrepair, CHF, hypertension, hyperlipidemia presenting with chest pain. Patient states that chest pain started 2 AM today, 11/13. Initially left chest, did not radiate. Since that time, radiated to his left axilla, down his left arm. No associated symptoms otherwise. No shortness of breath, nausea, vomiting, diaphoresis, cough, neurologic deficits. Took 2 nitroglycerin, this helped get rid of the pain. Pain returned, but less severe and no longer chest pain, just axillary down to left upper extremity. Patient states he supposed to follow-up with cardiology for heart catheterization and cardiac workup next week. History was obtained via conversation with patient. On arrival, patient hemodynamically stable, alert, oriented x4, appropriate, GCS 15, moving all extremities spontaneously, pupils equal and reactive to light. Full physical exam performed and significant for well-appearing male no acute distress. He does have a right upper sternal border murmur. Neurovascularly intact otherwise. Lungs are clear to auscultation, neurologically intact. Differential includes microvascular coronary artery disease, CHF, ACS, CT, coronary artery dissection, pneumothorax, PE, dissection, pericarditis, myocarditis, pneumothorax, aortic aneurysm, pneumonia, bronchitis, among others. Patient was given 324 mg aspirin for symptomatic management and correction of underlying abnormalities. Workup independently interpreted and significant for nonactionable hematologic workup including troponin. See radiology read for full review of final results. Independent interpretation of EKG shows sinus rhythm without ST or T wave changes concerning for acute ischemia. Intervals within normal limits. Patient placed on continuous cardiac monitoring and continuous pulse ox with initial blood pressure 147/95, heart rate 61, saturation 98% on room air. Heart score 4. On reevaluation, patient resting comfortably in bed, pain almost entirely gone. Hospitalist was contacted and case was discussed at length. Heparinization was considered, but deferred at this time given largely asymptomatic patient with completely negative workup and nonischemic EKG. Given patient presentation, workup, history, this most likely represents cardiac versus noncardiac chest pain. Because patient high risk for clinical decompensation, deemed appropriate for inpatient admission. Results were relayed to patient who voiced understanding and patient was agreeable to inpatient admission and management. Patient was admitted to the hospital for further definitive management.
[2023-11-14 22:29] LABS: Troponin I < 0.01 ng/ml (0.00-0.034)
[2023-11-14 22:52] VITALS: PULSE 58
--- NOTE | 2023-11-14 22:57 | EXP.HP ---
History of Present Illness *Admission Date: 11/14/23 *Reason for visit:: CP *History of present illness: This is a 63-year-old male with extensive cardiac history including CAD status post stenting, AAA status postrepair, CHF, hypertension, hyperlipidemia, presented with chest pain. Patient states that chest pain started 2 AM today. Patient stated around 6pm tonight he started to feel worse with pain in his left armpit radiating down his left arm and nausea. He took two nitro SL and found that his BP was elevated. Patient was last seen by Cardiology last week for f/u CT angio that showed stable latent AAA graft, with occlusion of the proximal ADAMARIS. After this episode patient became concerned and decided to come to ED for evaluation. On arrival pain was improved, denied abdominal pain. Admitted for further work up. [facility] Disclaimer: The information contained in this section may have been updated after the patient was seen, as this information can be updated by other users. Medical History (Updated 11/15/23 @ 13:18 by Brooklyn Blackwell APRN) Abdominal pain Stenosis of inferior mesenteric artery Hypertension Unstable angina Blurry vision Headache Dyspnea Hypertriglyceridemia CAD (coronary artery disease) PAD (peripheral artery disease) Abdominal aortic aneurysm Carotid artery stenosis Diastolic heart failure Coronary arteriosclerosis Hypertensive heart disease with congestive heart failure Hyperlipemia Surgical History History of endovascular stent graft for abdominal aortic aneurysm (AAA) Family History Sister Diabetes Social History Smoking Status: Former smoker alcohol intake: never substance use type: denies use current occupational status: disabled Travel in the last 8 weeks: None household members: family housing: house Review of Systems Review of Systems Review of systems:: pertinent systems reviewed and negative unless documented below Meds Home Medications and Allergies Home Medications Medication Instructions Recorded Confirmed Type aspirin 81 mg tablet,delayed 81 mg PO DAILY #90 tabs 12/29/19 11/15/23 Rx release (Adult Low Dose Aspirin) nitroglycerin 0.4 mg sublingual 0.4 mg sublingual Q5M PRN chest 01/11/23 11/15/23 Rx tablet pain #25 tabs ascorbic acid (vitamin C) 1,000 mg 1 g PO DAILY #30 tabs 05/08/23 11/15/23 Rx tablet (Vitamin C) cholecalciferol (vitamin D3) 25 1,000 unit PO DAILY 05/08/23 11/15/23 History mcg (1,000 unit) tablet (Vitamin D3) haider root extract 15 mg chewable 15 mg PO BID 05/08/23 11/15/23 History tablet carvedilol 25 mg tablet (Coreg) 25 mg PO BID 11/15/23 11/15/23 History evolocumab 140 mg/mL subcutaneous 140 mg SQ .EVERY 2 WEEKS 11/15/23 11/15/23 History pen injector (Repatha SureClick) icosapent ethyl 1 gram capsule 1 g PO BID 11/15/23 11/15/23 History (Vascepa) isosorbide mononitrate 30 mg 30 mg PO DAILY 30 days #30 tabs 11/16/23 Rx tablet,extended release 24 hr ranolazine 500 mg tablet,extended 500 mg PO BID 30 days #60 tabs 11/16/23 Rx release,12 hr New Prescriptions to Start Prescriptions: isosorbide mononitrate Erik,Irfan ranolazine Erik,Irfan Allergies Allergy/AdvReac Type Severity Reaction Status Date / Time clopidogrel [From Plavix] Allergy Mild Verified 05/08/23 10:38 Fugyrcu-VHX-DqO Reductase Allergy Mild Verified 05/08/23 10:38 Inhibitor [Aphbhyl-Ogf-Bbp Reductase Inhibitor] Penicillins Allergy Verified 05/08/23 10:38 gemfibrozil AdvReac Severe leg pain Verified 05/08/23 10:38 losartan AdvReac Verified 05/08/23 10:38 Sulfa (Sulfonamide AdvReac Verified 05/08/23 10:38 Antibiotics) Exam Data for Last 24 hours Vital signs and Labs for Last 24 Hours: Temp Pulse Resp BP Pulse Ox O2 Del Method 98.0 F 58 L 18 147/95 H 98 Room Air 11/14/23 22:04 11/14/23 22:52 11/14/23 22:04 11/14/23 22:04 11/14/23 22:04 11/14/23 22:04 Laboratory Results - last 24 hr 11/14/23 21:45: WBC 10.7, RBC 5.21, Hgb 16.3, Hct 51.3, MCV 98.4 H, MCH 31.2, MCHC 31.7 L, RDW 13.2, Plt Count 245, MPV 7.8, Neut % (Auto) 59.8, Lymph % (Auto) 31.3, [place] % (Auto) 5.3, Eos % (Auto) 2.1, Baso % (Auto) 1.5, Neut # (Auto) 6.4, Lymph # (Auto) 3.4, [place] # (Auto) 0.6, Eos # (Auto) 0.2, Baso # (Auto) 0.2, Sodium 140, Potassium 3.9, Chloride 107, Carbon Dioxide 31 H, Anion Gap 5.9, BUN 10, Creatinine 1.00, Estimated GFR 75, Est GFR ( Amer) 91, Glucose 111 H, Calcium 9.8, Total Bilirubin 0.9, AST 41, ALT 36, Alkaline Phosphatase 67, Troponin I < 0.01, NT-Pro-B Natriuret Pep 146 H, Total Protein 7.4, Albumin 4.5, Globulin 2.9, Albumin/Globulin Ratio 1.6 I & O for Last 24 hours: Intake & Output 11/11/23 11/12/23 11/13/23 11/14/23 23:59 23:59 23:59 23:59 Weight 83.461 kg Constitutional Constitutional: no acute distress *Routine HEENT Exam Head: Present normocephalic Eye: Present EOMI and PERRL ENT: Present mucous membranes moist *Routine Neck Exam Neck: Present supple; Absent lymphadenopathy *Routine Respiratory Exam Respiratory: Present CTA bilaterally *Routine Cardiovascular Exam Cardiovascular: Present RRR *Routine Abdominal Exam Abdominal: Present soft and normoactive bowel sounds; Absent tenderness *Routine Rectal Exam Rectal:: deferred *Routine Genitalia Exam Genitalia:: deferred *Routine Extremities Exam Extremities: Absent cyanosis, clubbing or edema *Routine Skin Exam Skin: Present warm; Absent rash *Routine Neurological Exam Neurological: Present alert and oriented X3 H&P: Result Imaging and Cardiology EKG: Status: image reviewed by me, Preliminary report and final report Chest x-ray: Status: image reviewed by me, Preliminary report and final report Assessment and Plan *Assessment and plan (1) Angina at rest: Status: Acute Category: Medical Code(s): I20.89 - Other forms of angina pectoris (2) CAD (coronary artery disease): Status: Chronic Qualifiers: Associated angina: without angina Coronary Disease-Associated Artery/Lesion type: [place] artery [place] vs. transplanted heart: [place] heart Qualified Code(s): I25.10 - Atherosclerotic heart disease of [place] coronary artery without angina pectoris Category: Medical Code(s): I25.10 - Atherosclerotic heart disease of [place] coronary artery without angina pectoris (3) History of endovascular stent graft for abdominal aortic aneurysm (AAA): Status: Chronic Category: Surgical Code(s): Z95.828 - Presence of other vascular implants and grafts (4) Hypertensive heart disease with congestive heart failure: Status: Chronic Qualifiers: Heart failure chronicity: chronic Heart failure type: diastolic Qualified Code(s): I11.0 - Hypertensive heart disease with heart failure Category: Medical Code(s): I11.0 - Hypertensive heart disease with heart failure (5) Hyperlipemia: Status: Chronic Qualifiers: Hyperlipidemia type: familial hypercholesterolemia Qualified Code(s): E78.01 - Familial hypercholesterolemia Category: Medical Code(s): E78.5 - Hyperlipidemia, unspecified Plan 63-year-old male with extensive cardiac history including CAD status post stenting, AAA status postrepair, CHF, hypertension, hyperlipidemia, presented with chest pain. Patient states that chest pain started 2 AM today. on arrival pain has been improved. however patient still anxious about his conditions. he wants to see cardiology for evaluations. Troponin are negative, EKG is negative. ED requested admission for further work up and ruled out ACS. Medicine agreed for admission. Plan as follow; -Unstable angina: CAD AAA s/p graft stent. stable HTN with HF admit patient for continuos cardiac air sampling and monitoring for chest pain VS per unit nitro SL as needed for chest pain morphine pRN\ optimize o2 sat. oxygen as needed trending troponin. Negative EKG negative Cardiology consult seen last week recommended Lexiscan w/ myoview-CAD, dyspnea ECHO-CAD, dyspnea repeat labs in the morning patient concerned about a findings documented as a possible ADAMARIS occlusion. currently asymptomatic HLD: continue monitoring last TG 683 patient current on vascepa lovenox for DVT ppx. on protonix ] Full code
--- NOTE | 2023-11-14 23:01 | PC.NURSE ---
pt admitted to room 208 for unstable angina to hospitalist
--- NOTE | 2023-11-14 23:09 | PC.NURSE ---
attempted o call report to 2nd floor at this time
--- NOTE | 2023-11-14 23:19 | PC.NURSE ---
RECEIVED PHONE REPORT FROM RAQUEL RN/ED NURSE. PATIENT IS A 63 YO MALE WITH CARDIAC HISTORY. ADMISSION DIAGNOSIS ID UNSTABLE ANGINA. MAY TRANSPORT VIA W/C.
[2023-11-14 23:26] VITALS: BP 151/83; PULSE 80; RESP 18; TEMP 37.1; O2SAT 99
--- NOTE | 2023-11-14 23:33 | PC.NURSE ---
patient arrived via wheelchair @23:32
[2023-11-15] VITALS (22 sets, daily range): BP systolic 92–151; BP diastolic 57–95; PULSE 54–70; RESP 12–20; TEMP 36.6–36.9; O2SAT 94–100; BMI 29.7
[2023-11-15] MEDS: 0.9 % SODIUM CHLORIDE 1000ML 1,000 ML 75 ML IV ×2 (00:13→15:24)
[2023-11-15 01:46] LABS: Troponin I < 0.01 ng/ml (0.00-0.034)
--- NOTE | 2023-11-15 03:14 | CA_ITS ---
APPROVED REPORT EXAM: Comprehensive 2D, Doppler, and color-flow Echocardiogram [employer] Inspector: MARIELA Quezada, RVS Ht: 5 ft 5 in Wt: 184lbs BSA: 1.91 BP: 147/95 mmHg Indications: CP, CAD, AAA repair, HTN, HLD 2D Dimensions IVSd 0.98 cm LVEF (Visual) 62.80 % PWd 0.93 cm LA Volume 48.60 mL LVDd 4.30 cm LA Volume Index 24.80 mL/m2 (M/F) 16-34 LVDs 2.85 cm Left Atrium 3.19 cm M-Mode Dimensions LA Diam 3.14 cm (1.9-4.0) EPSs 0.50 cm TAPSE 2.64 (<1.7) LV Diastology E Decel Time 170 (160-240 msec) E/A Ratio 1.25 MED A' 8.80 cm/s LAT A' 10.10 cm/s Aortic Valve TORRI Index 0.81 cm2/m2 AoV Peak Kyle. 165.0 (50-130 cm/s) AO Peak GR. 10.90 mmHg AO Mean GR. 5.40 (<5 mmHg) AO VTI 35.5 (18-25 cm) TORRI (VTI) 1.59 (2.5-4.5 cm2) Mitral Valve MV A Velocity 61.0 (40-130 cm/s) E/A Ratio 1.25 Pulmonary Valve PV Peak Velocity 84.0 (50-150 cm/s) Tricuspid Valve TR P. Velocity 245.00 cm/s RAP Estimate 10.00 mmHg RVSP 34.00 mmHg Left Ventricle The left ventricle is normal size. The left ventricular systolic function is normal. The left ventricular ejection fraction is within the normal range. There is normal left ventricular wall thickness. There is normal LV segmental wall motion. The left ventricular diastolic function is normal. LVEF is 55%. Right Ventricle The right ventricle is normal size. The right ventricular systolic function is mildly reduced Atria The left atrium size is normal. The right atrium size is normal. There is no Doppler evidence of interatrial shunt. Aortic Valve The aortic valve is mildly thickened. There is no aortic valvular stenosis. Trace aortic regurgitation. Mitral Valve The mitral valve is normal in structure. No evidence of mitral valve stenosis. Trace mitral regurgitation. Tricuspid Valve The tricuspid valve leaflets are thin and pliable. Trace tricuspid regurgitation. RVSP is 20-25 mmHg. Pulmonic Valve The pulmonary valve is normal in structure. Trace pulmonic regurgitation. Great Vessels The aortic root is normal in size. The ascending aorta is mildly dilated, measuring 3.8 cm in diameter. IVC is normal in size and collapses >50% with inspiration. Pericardium There is no pericardial effusion. Other Information Study Quality: Fair Conclusion Normal LV systolic function. Normal RV size with mild reduction in RV function. No significant valvular stenosis or regurgitation. Mildly dilated ascending aorta (3.8 cm). Electronically signed by : Tammy Uriostegui MD 11/19/2023 11:44:43
[2023-11-15 04:23] LABS: Troponin I < 0.01 ng/ml (0.00-0.034)
[2023-11-15 06:11] LABS: Basophils # 0.1 K/mm3 (0-0.2); Basophils % 1.3 % (0.1-2.0); Eosinophils # 0.2 K/mm3 (0.0-0.4); Eosinophils % 2.2 % (0.1-12.0); Hematocrit 45.7 % (42.0-52.0); Hemoglobin 15.1 g/dL (14.1-18.0); Lymphocytes # 3.1 K/mm3 (0.7-4.5); Mean Corpuscular HGB Conc 32.9 g/dL (31.8-35.4); Mean Corpuscular Hemoglobin 31.8 pg (27.0-31.2); Mean Corpuscular Volume 96.5 fl (80-94); Mean Platelet Volume 7.9 fl (7.4-10.4); Monocytes # 0.5 K/mm3 (0.1-1.0); Monocytes % 6.3 % (1.7-9.3); Neutrophils # 4.6 K/mm3 (1.8-7.8); Neutrophils % 54.1 % (37.0-80.0); Platelet Count 180 K/mm3 (142-424); Red Blood Count 4.74 M/mm3 (4.60-6.20); Red Cell Distribution Width 13.3 % (11.5-17.5); White Blood Count 8.5 K/mm3 (4.8-10.8)
[2023-11-15 06:15] LABS: Chol/HDL Ratio 3.4 (1-3.5); Cholesterol 187 mg/dl (140-200); HDL Cholesterol 55 mg/dl (40-60); Triglycerides 390 mg/dl (30-150); VLDL Cholesterol 78 mg/dL (0-40)
[2023-11-15 06:16] LABS: INR 1.07 (0.9-1.1); Prothrombin Time 11.5 seconds (10.1-12.5)
[2023-11-15 06:17] LABS: Alanine Aminotransferase 31 U/L (12-78); Albumin Level 3.8 g/dl (3.5-5.0); Albumin/Globulin Ratio 1.5 (1.1-1.8); Alkaline Phosphatase 60 U/L (38-126); Anion Gap 5.8 mEq/L (5-15); Aspartate Amino Transferase 35 U/L (17-59); Bilirubin,Total 0.8 mg/dl (0.2-1.3); Blood Urea Nitrogen 8 mg/dl (9-20); Calcium 9.4 mg/dl (8.4-10.2); Carbon Dioxide 30 mmol/L (22.0-30.0); Chloride 108 mmol/L (98-107); Creatinine Clearance Estimated 86 mL/min (50-200); Estimated Glomerular Filt Rate 75 ml/min (>60); GFR (African American) 91 ML/MIN (>60); Globulin 2.6 g/dL (1.3-3.2); Glucose 99 mg/dl (74-100); Magnesium 1.8 mg/dl (1.6-2.3); Potassium 3.8 mmoL/L (3.5-5.1); Sodium 140 mmol/L (136-145); Total Protein,Serum 6.4 g/dl (6.3-8.2)
[2023-11-15 06:26] LABS: Direct LDL Cholesterol 90.83 mg/dL (100-129)
--- NOTE | 2023-11-15 06:50 | PC.NURSE ---
PATIENT HAS HAD A QUIET NIGHT. DENIES CP/SOA/DISCOMFORT SINCE ADMISSION TO THE MED SURG FLOOR. VSs STABLE, AFEBRILE. SINUS ARRHTYMIA/ NSR NOTED ON TELEMETRY.
--- NOTE | 2023-11-15 08:02 | HMH.PHAINT1 ---
Pharmacy Intervention Comments: HOME MEDICATION LIST VERIFIED USING LIST FROM OUTPATIENT PHARMACY
[2023-11-15] MEDS: ENOXAPARIN 40MG/0.4ML SYRINGE 40 MG SQ (08:25)
[2023-11-15] MEDS: PANTOPRAZOLE 40MG TABLET 40 MG PO (08:25)
--- NOTE | 2023-11-15 10:48 | P.CONCA_ITS ---
History of Present Illness History of Present Illness Consult date: 11/15/23 Requesting physician: Manoj Valencia Consult reason: chest pain Chief complaint: chest pain History of present illness: This is a 63-year-old gentleman who presented to the emergency department complaints of chest pain. He has a history of coronary artery disease status post stenting, AAA status postrepair, hypertension and hyperlipidemia. The patient states that he had sudden onset of chest pain yesterday around 2 PM. He states that this was a dull heavy sensation in the center of his chest that radiated to his back. He states that he got significantly nauseated and had some diaphoresis. He states that this lasted about 10 to 15 minutes and he took 2 nitroglycerin and the chest pain resolved. He states that he was fine until around 6 PM and then the chest pain recurred. He states that it was the same dull pressure sensation but more in the left side of his chest radiating down his left arm causing nausea. He states that he took 2 more nitroglycerin pills at that time. He states with both episodes of chest pain his blood pressure was significantly elevated and after the nitroglycerin his blood pressure improved. He states that his chest pain improved as well with the nitroglycerin but the second episode was much more severe than the first episode so he decided to come to the emergency department. The patient ruled out for an DE. He denies any shortness of breath or lower extremity edema. He denies any fever, chills, vomiting, diarrhea, PND or orthopnea. [facility] Disclaimer: The information contained in this section may have been updated after the patient was seen, as this information can be updated by other users. Medical History (Updated 11/15/23 @ 13:18 by Brooklyn Blackwell APRN) Abdominal pain Stenosis of inferior mesenteric artery Hypertension Unstable angina Blurry vision Headache Dyspnea Hypertriglyceridemia CAD (coronary artery disease) PAD (peripheral artery disease) Abdominal aortic aneurysm Carotid artery stenosis Diastolic heart failure Coronary arteriosclerosis Hypertensive heart disease with congestive heart failure Hyperlipemia Surgical History History of endovascular stent graft for abdominal aortic aneurysm (AAA) Family History Sister Diabetes Social History Smoking Status: Former smoker alcohol intake: never substance use type: denies use current occupational status: disabled Travel in the last 8 weeks: None household members: family housing: house Review of Systems Review of Systems Review of systems:: pertinent systems reviewed and negative unless documented below Constitutional Constitutional: Reports system reviewed and no additional complaints, except as documented Eyes Eyes: Reports system reviewed and no additional complaints, except as documented ENT Ears, Nose, Mouth, and Throat: Reports system reviewed and no additional complaints, except as documented *Cardiovascular Cardiovascular: Reports system reviewed and no additional complaints, except as documented *Respiratory Respiratory: Reports system reviewed and no additional complaints, except as documented *Gastrointestinal Gastrointestinal: Reports system reviewed and no additional complaints, except as documented *Genitourinary Genitourinary: Reports system reviewed and no additional complaints, except as documented *Musculoskeletal Musculoskeletal: Reports system reviewed and no additional complaints, except as documented Integumentary/Breasts Skin/Breast: Reports system reviewed and no additional complaints, except as documented *Neurologic Neurologic: Reports system reviewed and no additional complaints, except as documented Psychiatric Psychiatric: Reports system reviewed and no additional complaints, except as documented Endocrine Endocrine: Reports system reviewed and no additional complaints, except as documented Hematologic/Lymphatic Hematologic/Lymphatic: Reports system reviewed and no additional complaints, except as documented Allergic/Immunologic Allergic/Immunologic: Reports system reviewed and no additional complaints, except as documented Exam Data for Last 24 hours Vital signs and Labs for Last 24 Hours: Temp Pulse Resp BP Pulse Ox O2 Del Method 98.3 F 60 18 136/59 L 97 Room Air 11/15/23 07:55 11/15/23 08:00 11/15/23 07:55 11/15/23 07:55 11/15/23 07:55 11/15/23 09:00 Laboratory Results - last 24 hr 11/14/23 21:45: WBC 10.7, RBC 5.21, Hgb 16.3, Hct 51.3, MCV 98.4 H, MCH 31.2, MCHC 31.7 L, RDW 13.2, Plt Count 245, MPV 7.8, Neut % (Auto) 59.8, Lymph % (Auto) 31.3, [place] % (Auto) 5.3, Eos % (Auto) 2.1, Baso % (Auto) 1.5, Neut # (Auto) 6.4, Lymph # (Auto) 3.4, [place] # (Auto) 0.6, Eos # (Auto) 0.2, Baso # (Auto) 0.2, Sodium 140, Potassium 3.9, Chloride 107, Carbon Dioxide 31 H, Anion Gap 5.9, BUN 10, Creatinine 1.00, Estimated GFR 75, Est GFR ( Amer) 91, Glucose 111 H, Calcium 9.8, Total Bilirubin 0.9, AST 41, ALT 36, Alkaline Phosph atase 67, Troponin I < 0.01, NT-Pro-B Natriuret Pep 146 H, Total Protein 7.4, Albumin 4.5, Globulin 2.9, Albumin/Globulin Ratio 1.6 11/15/23 01:00: Troponin I < 0.01 11/15/23 03:55: Troponin I < 0.01 11/15/23 05:50: WBC 8.5, RBC 4.74, Hgb 15.1, Hct 45.7, MCV 96.5 H, MCH 31.8 H, MCHC 32.9, RDW 13.3, Plt Count 180 D, MPV 7.9, Neut % (Auto) 54.1, Lymph % (Auto) 36.0, [place] % (Auto) 6.3, Eos % (Auto) 2.2, Baso % (Auto) 1.3, Neut # (Auto) 4.6, Lymph # (Auto) 3.1, [place] # (Auto) 0.5, Eos # (Auto) 0.2, Baso # (Auto) 0.1, PT 11.5, INR 1.07, Sodium 140, Potassium 3.8, Chloride 108 H, Carbon Dioxide 30, Anion Gap 5.8, BUN 8 L, Creatinine 1.00, Estimated Creat Clear 86, Estimated GFR 75, Est GFR ( Amer) 91, Glucose 99, Calcium 9.4, Magnesium 1.8, Total Bilirubin 0.8, AST 35, ALT 31, Alkaline Phosphatase 60, Total Protein 6.4, Albumin 3.8 D, Globulin 2.6, Albumin/Globulin Ratio 1.5, Triglycerides 390 H, Cholesterol 187, LDL Cholesterol Direct 90.83 L, VLDL Cholesterol 78 H, HDL Cholesterol 55, Cholesterol/HDL Ratio 3.4 I & O for Last 24 hours: Intake & Output 04/29/11/13/23 11/14/23 11/15/23 23:59 23:59 23:59 23:59 Intake Total 656 / 656 Output Total 802 / 802 Balance -146 / -146 Weight 184 lb 178 lb 4.8 oz Narrative: EKG is sinus rhythm with a rate of 63 bpm. Constitutional Constitutional: no acute distress and average body habitus *Routine HEENT Exam Head: Present normocephalic and atraumatic ENT: Present mucous membranes moist *Routine Neck Exam Neck: Present supple, full ROM and normal carotid upstroke; Absent JVD, carotid bruit or lymphadenopathy *Routine Respiratory Exam Respiratory: Present CTA bilaterally, normal respiratory effort, able to speak in complete sentences and symmetric chest movement *Routine Cardiovascular Exam Cardiovascular: Present RRR, Normal S1 and Normal S2; Absent murmur or gallop *Routine Abdominal Exam Abdominal: Present soft and normoactive bowel sounds; Absent tenderness, distended or organomegaly *Routine Extremities Exam Extremities: Present full ROM, pulses intact and normal capillary refill; Absent cyanosis, clubbing or edema *Routine Skin Exam Skin: Present intact and warm; Absent erythema *Routine Neurological Exam Neurological: Present alert, oriented X3 and CN II-XII intact; Absent sensory deficit or motor deficit Routine Psychiatric Exam Psychiatric: Present normal affect Meds Home Medications and Allergies Home Medications Medication Instructions Recorded Confirmed Type aspirin 81 mg tablet,delayed 81 mg PO DAILY #90 tabs 12/29/19 11/15/23 Rx release (Adult Low Dose Aspirin) isosorbide mononitrate 30 mg 15 mg (1/2 x 30 mg) PO DAILY #90 01/11/23 11/15/23 Rx tablet,extended release 24 hr tabs nitroglycerin 0.4 mg sublingual 0.4 mg sublingual Q5M PRN chest 01/11/23 11/15/23 Rx tablet pain #25 tabs ascorbic acid (vitamin C) 1,000 mg 1 g PO DAILY #30 tabs 05/08/23 11/15/23 Rx tablet (Vitamin C) cholecalciferol (vitamin D3) 25 1,000 unit PO DAILY 05/08/23 11/15/23 History mcg (1,000 unit) tablet (Vitamin D3) haider root extract 15 mg chewable 15 mg PO BID 05/08/23 11/15/23 History tablet carvedilol 25 mg tablet (Coreg) 25 mg PO BID 11/15/23 11/15/23 History evolocumab 140 mg/mL subcutaneous 140 mg SQ .EVERY 2 WEEKS 11/15/23 11/15/23 History pen injector (Ariel Boyce) icosapent ethyl 1 gram capsule 1 g PO BID 11/15/23 11/15/23 History (Vascepa) New Prescriptions to Start Prescriptions: Allergies Allergy/AdvReac Type Severity Reaction Status Date / Time clopidogrel [From Plavix] Allergy Mild Verified 05/08/23 10:38 Mlssczn-NVH-NyE Reductase Allergy Mild Verified 05/08/23 10:38 Inhibitor [Ivlrevk-Cix-Lfo Reductase Inhibitor] Penicillins Allergy Verified 05/08/23 10:38 gemfibrozil AdvReac Severe leg pain Verified 05/08/23 10:38 losartan AdvReac Verified 05/08/23 10:38 Sulfa (Sulfonamide AdvReac Verified 05/08/23 10:38 Antibiotics) Assessment and Plan *Assessment and plan (1) Unstable angina: Status: Acute Category: Medical Code(s): I20.0 - Unstable angina (2) CAD (coronary artery disease): Status: Chronic Qualifiers: Associated angina: with unstable angina Coronary Disease-Associated Artery/Lesion type: [place] artery [place] vs. transplanted heart: [place] heart Qualified Code(s): I25.110 - Atherosclerotic heart disease of [place] coronary artery with unstable angina pectoris Category: Medical Code(s): I25.10 - Atherosclerotic heart disease of [place] coronary artery without angina pectoris (3) Hyperlipemia: Status: Chronic Qualifiers: Hyperlipidemia type: familial hypercholesterolemia Qualified Code(s): E78.01 - Familial hypercholesterolemia Category: Medical Code(s): E78.5 - Hyperlipidemia, unspecified (4) Hypertension: Status: Acute Qualifiers: Hypertension type: primary hypertension Qualified Code(s): I10 - Essential (primary) hypertension Category: Medical Code(s): I10 - Essential (primary) hypertension (5) Abdominal aortic aneurysm: Status: Chronic Qualifiers: Presence of rupture: without rupture Qualified Code(s): I71.4 - Abdominal aortic aneurysm, without rupture Category: Medical Code(s): I71.4 - Abdominal aortic aneurysm, without rupture (6) PAD (peripheral artery disease): Status: Chronic Category: Medical Code(s): I73.9 - Peripheral vascular disease, unspecified (7) History of endovascular stent graft for abdominal aortic aneurysm (AAA): Status: Chronic Category: Surgical Code(s): Z95.828 - Presence of other vascular implants and grafts (8) Stenosis of inferior mesenteric artery: Status: Acute Category: Medical Code(s): K55.1 - Chronic vascular disorders of intestine (9) Abdominal pain: Status: Acute Qualifiers: Abdominal location: generalized Qualified Code(s): R10.84 - Generalized abdominal pain Category: Medical Code(s): R10.9 - Unspecified abdominal pain Plan Plan: 1. The patient presented to the emergency department complaints of chest pain. He did rule out for an DE. His symptoms are consistent with unstable angina. Will plan to proceed with left cardiac catheterization today to evaluate his coronary artery disease. He is high risk for coronary artery disease progression. He has known stenting and DE in the past. 2. The patient has been educated the risk and benefits of proceeding with left cardiac catheterization. The patient verbalized understanding and is agreeable to proceeding with the procedure. 3. The patient had a recent CAT scan of his abdomen which showed severe ADAMARIS stenosis. He denies any recent weight loss and he denies symptoms of early satiety. He does have some diffuse abdominal pain that he states has been going on for the last several months. The patient is not having ischemic bowel symptoms so no abdominal angiogram per Dr. Becerra. 4. The patient will be n.p.o. in preparation for left heart cath. 5. Will obtain an echocardiogram to evaluate his LV function due to his chest pain. 6. His blood pressure is well-controlled. 7. His LDL goal is less than 55. His LDL is 90. He is on Repatha as he is intolerant to statins. 8. Further recommendations were made pending the patient's response to treatment the results of his left cardiac catheterization and abdominal angiogram today. Thank you for the opportunity to participate in the care of this patient. All recommendations and orders are per Dr. Uriostegui. Addendum: Left cardiac catheterization shows: The left main artery Has a 50% stenosis by angiography which proved to be much tighter with an MLA of 3.8 mm??? indicating an 80 to 90% stenosis The left anterior descending artery Has an ostial proximal 40% by angiography but 80% by IVUS. There is an additional proximal to mid vessel 40% stenosis. The circumflex artery Has an ostial proximal 50 to 60% stenosis followed by an additional proximal 70% concentric stenosis followed by a stent in the terminal obtuse marginal artery which has 70 to 90% concentric in-stent restenosis The right coronary artery Proximally occluded and fills via [id number] collaterals The [place] ventriculogram reveals Not performed The left ventricular end-diastolic pressure Not measured IMPRESSION Severe three-vessel coronary artery disease PLAN 1. Maximize antianginal medications making sure patient remains on aspirin and high intensity statin 2. Based on the angiographic results patient could be referred to [facility] on an outpatient basis for evaluation of CABG. If patient's symptoms make an outpatient approach prohibitive then recommend transferring patient to [facility] for bypass surgery during this index hospitalization 3. Continue antianginal medications and consider starting on heparin if patient is going to be transferred this admission Start Ranexa 500 mg p.o. twice daily for angina and increase Imdur to 30 mg p.o. daily for angina. AMB Pre-cath Criteria Pre-cath considerations: Clinical evaluation and indication for coronary angiography includes:: know CAD, new onset angina <= 2 months and worsening angina Patient is describing chest pain symtom as:: typical angina Clinical risk factors:: CAD, PAD, HTN, HLD, unstable angina How many antianginals is the patient taking?: 2 Patient is taking:: beta elvie and Long acting nitrate Risks and benefits:: We will plan to proceed with LHC/coronary angiography with right radial access. The patient has been educated on the risks and benefits of proceeding with LHC/coronary angiography with right radial access. The patient verbalized understanding and is agreeable in proceeding with the procedure.
[2023-11-15 11:32] LABS: Hemoglobin A1C 5.6 % (4.0-6.0)
--- NOTE | 2023-11-15 11:47 | IR_ITS ---
APPROVED REPORT Patient Location: Inpatient Radiographic Technologist: NANDO Smith RT (R) PROCEDURES Selective coronary angiogram Intravascular ultrasound of the left main artery and proximal LAD INDICATION Unstable angina, Coronary artery disease, Angiographic ambiguity in the left main artery Informed consent was obtained prior to the procedure. COMPLICATIONS None Estimated Blood Loss: Less than 10 mls TECHNIQUE One percent lidocaine used to anesthetize the right anterior aspect of the wrist. The right radial artery was accessed via the Seldinger technique. A 6 [place] sheath was placed in the right radial artery. 2.5 mg of Verapamil, 800 mcg of nitroglycerin, 1mg Lidocaine and 5000 U Heparin were given through the arterial sheath. The papa catheter was also used to perform left heart catheterization, left ventriculogram and selective coronary angiogram. At the end of the procedure the sheath was removed good hemostasis was achieved using Traclet band, patient was transferred to the postop holding area in stable condition. ANGIOGRAPHIC RESULTS The left main artery Has a 50% stenosis by angiography which proved to be much tighter with an MLA of 3.8 mm??? indicating an 80 to 90% stenosis The left anterior descending artery Has an ostial proximal 40% by angiography but 80% by IVUS. There is an additional proximal to mid vessel 40% stenosis. The circumflex artery Has an ostial proximal 50 to 60% stenosis followed by an additional proximal 70% concentric stenosis followed by a stent in the terminal obtuse marginal artery which has 70 to 90% concentric in-stent restenosis The right coronary artery Proximally occluded and fills via [id number] collaterals The [place] ventriculogram reveals Not performed The left ventricular end-diastolic pressure Not measured IMPRESSION Severe three-vessel coronary artery disease PLAN 1. Maximize antianginal medications making sure patient remains on aspirin and high intensity statin 2. Based on the angiographic results patient could be referred to [facility] on an outpatient basis for evaluation of CABG. If patient's symptoms make an outpatient approach prohibitive then recommend transferring patient to [facility] for bypass surgery during this index hospitalization 3. Continue antianginal medications and consider starting on heparin if patient is going to be transferred this admission Electronically signed by : Junior Becerra MD 11/15/2023 13:04:38
[2023-11-15] MEDS: NITROGLYCERIN 800MCG/8ML SYR (CATH LAB) 800 MCG IA (12:04)
[2023-11-15] MEDS: HEPARIN 1,000 UNITS/500ML NS (CATH LAB) 3000 UNIT IV (12:04)
[2023-11-15] MEDS: diphenhydrAMINE 50MG/ML VIAL 50 MG IV (12:04)
[2023-11-15] MEDS: VERAPAMIL 2.5MG/ML 2ML VIAL 2.5 MG IV (12:04)
[2023-11-15] MEDS: LIDOCAINE 1% 10ML MDV 20 ML IJ (12:04)
[2023-11-15] MEDS: HEPARIN 1,000 UNITS/ML 10ML VIAL (CATH LAB) 10000 UNIT IV (12:54)
[2023-11-15] MEDS: MIDAZOLAM HCL 1MG/1ML 5ML VIAL 1 MG IV (12:55)
[2023-11-15] MEDS: FENTANYL 100MCG/2ML VIAL 50 MCG IV (12:55)
[2023-11-15] MEDS: IOPAMIDOL-370 (76%);100ML BOTTLE 100 ML IV (14:05)
[2023-11-15] MEDS: RANOLAZINE 500MG ER TABLET 500 MG PO ×2 (15:23→20:47)
[2023-11-15] MEDS: ISOSORBIDE MONO 30MG TAB.ER.24H 30 MG PO (15:24)
--- NOTE | 2023-11-15 16:26 | P.PN_ITS ---
Subjective *Date: 11/15/23 *Time: 16:26 Interval history: seen at bedside, denied CP, SOB, he feels better this morning Exam Data for Last 24 hours Vital signs and Labs for Last 24 Hours: Temp Pulse Resp BP Pulse Ox O2 Del Method 97.9 F 67 18 142/95 H 95 Room Air 11/15/23 13:35 11/15/23 14:50 11/15/23 14:50 11/15/23 14:50 11/15/23 14:50 11/15/23 15:00 Laboratory Results - last 24 hr 11/14/23 21:45: WBC 10.7, RBC 5.21, Hgb 16.3, Hct 51.3, MCV 98.4 H, MCH 31.2, MCHC 31.7 L, RDW 13.2, Plt Count 245, MPV 7.8, Neut % (Auto) 59.8, Lymph % (Auto) 31.3, [place] % (Auto) 5.3, Eos % (Auto) 2.1, Baso % (Auto) 1.5, Neut # (Auto) 6.4, Lymph # (Auto) 3.4, [place] # (Auto) 0.6, Eos # (Auto) 0.2, Baso # (Auto) 0.2, Sodium 140, Potassium 3.9, Chloride 107, Carbon Dioxide 31 H, Anion Gap 5.9, BUN 10, Creatinine 1.00, Estimated GFR 75, Est GFR ( Amer) 91, Glucose 111 H, Calcium 9.8, Total Bilirubin 0.9, AST 41, ALT 36, Alkaline Phosphatase 67, Troponin I < 0.01, NT-Pro-B Natriuret Pep 146 H, Total Protein 7.4, Albumin 4.5, Globulin 2.9, Albumin/Globulin Ratio 1.6 11/15/23 01:00: Troponin I < 0.01 11/15/23 03:55: Troponin I < 0.01 11/15/23 05:50: WBC 8.5, RBC 4.74, Hgb 15.1, Hct 45.7, MCV 96.5 H, MCH 31.8 H, MCHC 32.9, RDW 13.3, Plt Count 180 D, MPV 7.9, Neut % (Auto) 54.1, Lymph % (Auto) 36.0, [place] % (Auto) 6.3, Eos % (Auto) 2.2, Baso % (Auto) 1.3, Neut # (Auto) 4.6, Lymph # (Auto) 3.1, [place] # (Auto) 0.5, Eos # (Auto) 0.2, Baso # (Auto) 0.1, PT 11.5, INR 1.07, Sodium 140, Potassium 3.8, Chloride 108 H, Carbon Dioxide 30, Anion Gap 5.8, BUN 8 L, Creatinine 1.00, Estimated Creat Clear 86, Estimated GFR 75, Est GFR ( Amer) 91, Glucose 99, Hemoglobin A1c 5.6, Calcium 9.4, Magnesium 1.8, Total Bilirubin 0.8, AST 35, ALT 31, Alkaline Phosphatase 60, Total Protein 6.4, Albumin 3.8 D, Globulin 2.6, Albumin/Globulin Ratio 1.5, Triglycerides 390 H, Cholesterol 187, LDL Cholesterol Direct 90.83 L, VLDL Cholesterol 78 H, HDL Cholesterol 55, Cholesterol/HDL Ratio 3.4 I & O for Last 24 hours: Intake & Output 11/12/23 11/13/23 11/14/23 11/15/23 23:59 23:59 23:59 23:59 Intake Total 656 / 656 Output Total 1052 / 1052 Balance -396 / -396 Weight 83.461 kg 80.876 kg Constitutional Constitutional: no acute distress *Routine HEENT Exam Head: Present normocephalic Eye: Present EOMI and PERRL ENT: Present mucous membranes moist *Routine Neck Exam Neck: Present supple; Absent lymphadenopathy *Routine Respiratory Exam Respiratory: Present CTA bilaterally *Routine Cardiovascular Exam Cardiovascular: Present RRR *Routine Abdominal Exam Abdominal: Present soft and normoactive bowel sounds; Absent tenderness *Routine Extremities Exam Extremities: Absent cyanosis, clubbing or edema *Routine Skin Exam Skin: Present warm; Absent rash *Routine Neurological Exam Neurological: Present alert and oriented X3 Assessment and Plan *Assessment and plan (1) Angina at rest: Status: Acute Category: Medical Code(s): I20.89 - Other forms of angina pectoris (2) CAD (coronary artery disease): Status: Chronic Qualifiers: Coronary Disease-Associated Artery/Lesion type: [place] artery [place] vs. transplanted heart: [place] heart Associated angina: with unstable angina Qualified Code(s): I25.110 - Atherosclerotic heart disease of [place] coronary artery with unstable angina pectoris Category: Medical Code(s): I25.10 - Atherosclerotic heart disease of [place] coronary artery without angina pectoris (3) History of endovascular stent graft for abdominal aortic aneurysm (AAA): Status: Chronic Category: Surgical Code(s): Z95.828 - Presence of other vascular implants and grafts (4) Hypertensive heart disease with congestive heart failure: Status: Chronic Qualifiers: Heart failure chronicity: chronic Heart failure type: diastolic Qualified Code(s): I11.0 - Hypertensive heart disease with heart failure Category: Medical Code(s): I11.0 - Hypertensive heart disease with heart failure (5) Hyperlipemia: Status: Chronic Qualifiers: Hyperlipidemia type: familial hypercholesterolemia Qualified Code(s): E78.01 - Familial hypercholesterolemia Category: Medical Code(s): E78.5 - Hyperlipidemia, unspecified Plan 63-year-old male with extensive cardiac history including CAD status post stent ing, AAA status postrepair, CHF, hypertension, hyperlipidemia, presented with chest pain. Patient states that chest pain started 2 AM today. on arrival pain has been improved. however patient still anxious about his conditions. he wants to see cardiology for evaluations. Troponin are negative, EKG is negative. ED requested admission for further work up and ruled out ACS. Medicine agreed for admission. Plan as follow; -Unstable angina: CAD AAA s/p graft stent. stable HTN with HF plan for cardiac cath this morning, started on renexa and imdur per cardiology cath report IMPRESSION Severe three-vessel coronary artery disease PLAN 1. Maximize antianginal medications making sure patient remains on aspirin and high intensity statin 2. Based on the angiographic results patient could be referred to [facility] on an outpatient basis for evaluation of CABG. If patient's symptoms make an outpatient approach prohibitive then recommend transferring patient to [facility] for bypass surgery during this index hospitalization 3. Continue antianginal medications and consider starting on heparin if patient is going to be transferred this admission trending troponin. Negative EKG negative Cardiology consult seen last week recommended Lexiscan w/ myoview-CAD, dyspnea ECHO-CAD, dyspnea repeat labs in the morning patient concerned about a findings documented as a possible ADAMARIS occlusion. currently asymptomatic HLD: continue monitoring last TG 683 patient current on vascepa lovenox for DVT ppx. on protonix ] Full code likely dc tomorrw, monitor Cr
--- NOTE | 2023-11-15 18:20 | PC.NURSE ---
Pt has done well this shift. No c/o chest pain or SOB. VSS. No c/o pain.
[2023-11-15] MEDS: ACETAMINOPHEN 325MG TAB 650 MG PO (19:16)
[2023-11-15] MEDS: ONDANSETRON 4MG/2ML VIAL 4 MG IV (19:20)
--- NOTE | 2023-11-15 19:45 | PC.NURSE ---
during shift change pt c/o weakness, pain at cath site, and nausea - tx per sep and upon reassessment patient states I feel better . right radial cath site dsg c/d/i and vss at this time.
--- NOTE | 2023-11-15 20:45 | PC.NURSE ---
Held 2100 Coreg after consulting with Hospitalist r/t hypotension and 61-65 HR
[2023-11-16] VITALS: BP 101/52; PULSE 60; PULSE 68; RESP 17; TEMP 37; O2SAT 96
[2023-11-16 04:00] VITALS: BP 110/59; PULSE 60; RESP 16; TEMP 36.6; O2SAT 96; BMI 29.1
[2023-11-16 06:05] LABS: Basophils # 0.1 K/mm3 (0-0.2); Eosinophils # 0.2 K/mm3 (0.0-0.4); Eosinophils % 2.1 % (0.1-12.0); Hematocrit 42.8 % (42.0-52.0); Lymphocytes # 2.4 K/mm3 (0.7-4.5); Lymphocytes % 32.9 % (10-50); Mean Corpuscular HGB Conc 32.7 g/dL (31.8-35.4); Mean Corpuscular Hemoglobin 31.7 pg (27.0-31.2); Mean Corpuscular Volume 96.9 fl (80-94); Mean Platelet Volume 7.7 fl (7.4-10.4); Monocytes # 0.5 K/mm3 (0.1-1.0); Monocytes % 6.3 % (1.7-9.3); Neutrophils # 4.1 K/mm3 (1.8-7.8); Neutrophils % 57.7 % (37.0-80.0); Platelet Count 182 K/mm3 (142-424); Red Blood Count 4.41 M/mm3 (4.60-6.20); Red Cell Distribution Width 13.3 % (11.5-17.5); White Blood Count 7.2 K/mm3 (4.8-10.8)
[2023-11-16 06:14] LABS: Anion Gap 4.1 mEq/L (5-15); Blood Urea Nitrogen 14 mg/dl (9-20); Calcium 8.8 mg/dl (8.4-10.2); Carbon Dioxide 30 mmol/L (22.0-30.0); Chloride 110 mmol/L (98-107); Creatinine Clearance Estimated 77 mL/min (50-200); Estimated Glomerular Filt Rate 68 ml/min (>60); GFR (African American) 82 ML/MIN (>60); Glucose 89 mg/dl (74-100); Potassium 4.1 mmoL/L (3.5-5.1); Sodium 140 mmol/L (136-145)
[2023-11-16 08:00] VITALS: BP 144/87; PULSE 64; RESP 16; TEMP 37.4; O2SAT 96
[2023-11-16] MEDS: RANOLAZINE 500MG ER TABLET 500 MG PO (09:32)
[2023-11-16] MEDS: CARVEDILOL 25MG TABLET 25 MG PO (09:32)
[2023-11-16] MEDS: ENOXAPARIN 40MG/0.4ML SYRINGE 40 MG SQ (09:32)
[2023-11-16] MEDS: ISOSORBIDE MONO 30MG TAB.ER.24H 30 MG PO (09:33)
[2023-11-16] MEDS: PANTOPRAZOLE 40MG TABLET 40 MG PO (09:33)
--- NOTE | 2023-11-16 11:05 | P.PN_ITS ---
Subjective Subjective Date: 11/16/23 Time: 08:30 Principal diagnosis: angina, CAD Interval history: This is a 63-year-old gentleman who presented to the emergency department complaints of chest pain. He underwent left cardiac catheterization yesterday and was found to have severe three-vessel disease. The patient has been recommended for coronary artery bypass grafting. This morning he denies any chest pain or pressure. He denies any shortness of breath or edema. He denies any fever, chills, nausea, vomiting, diarrhea, PND or orthopnea. The patient will be referred for coronary artery bypass grafting on an outpatient basis. Hi s antianginals have been adjusted. Exam Data for Last 24 hours Vital signs and Labs for Last 24 Hours: Temp Pulse Resp BP Pulse Ox O2 Del Method 99.3 F 64 16 144/87 H 96 Room Air 11/16/23 08:00 11/16/23 08:00 11/16/23 08:00 11/16/23 08:00 11/16/23 08:00 11/16/23 09:00 Laboratory Results - last 24 hr 11/15/23 05:50: Hemoglobin A1c 5.6 11/16/23 05:30: WBC 7.2, RBC 4.41 L, Hgb 14.0 L, Hct 42.8, MCV 96.9 H, MCH 31.7 H, MCHC 32.7, RDW 13.3, Plt Count 182, MPV 7.7, Neut % (Auto) 57.7, Lymph % (Auto) 32.9, Blount % (Auto) 6.3, Eos % (Auto) 2.1, Baso % (Auto) 1.0, Neut # (Auto) 4.1, Lymph # (Auto) 2.4, Blount # (Auto) 0.5, Eos # (Auto) 0.2, Baso # (Auto) 0.1, Sodium 140, Potassium 4.1, Chloride 110 H, Carbon Dioxide 30, Anion Gap 4.1 L, BUN 14 D, Creatinine 1.10, Estimated Creat Clear 77, Estimated GFR 68, Est GFR ( Amer) 82, Glucose 89, Calcium 8.8 I & O for Last 24 hours: Intake & Output 11/13/23 11/14/23 11/15/23 11/16/23 23:59 23:59 23:59 23:59 Intake Total 1196 / 1196 540 / 540 Output Total 1302 / 1602 500 / 500 Balance -106 / -406 40 / 40 Weight 184 lb 178 lb 4.8 oz 174 lb 13.225 oz Constitutional Constitutional: no acute distress and average body habitus *Routine HEENT Exam Head: Present normocephalic and atraumatic ENT: Present mucous membranes moist *Routine Neck Exam Neck: Present supple, full ROM and normal carotid upstroke; Absent JVD, carotid bruit or lymphadenopathy *Routine Respiratory Exam Respiratory: Present CTA bilaterally, normal respiratory effort, able to speak in complete sentences and symmetric chest movement *Routine Cardiovascular Exam Cardiovascular: Present RRR, Normal S1 and Normal S2; Absent murmur or gallop *Routine Abdominal Exam Abdominal: Present soft and normoactive bowel sounds; Absent tenderness, distended or organomegaly *Routine Extremities Exam Extremities: Present full ROM, pulses intact and normal capillary refill; Absent cyanosis, clubbing or edema *Routine Skin Exam Skin: Present intact and warm; Absent erythema *Routine Neurological Exam Neurological: Present alert, oriented X3 and CN II-XII intact; Absent sensory deficit or motor deficit Routine Psychiatric Exam Psychiatric: Present normal affect Progress Note: A&P Assessment and plan (1) CAD (coronary artery disease): Status: Chronic (2) History of endovascular stent graft for abdominal aortic aneurysm (AAA): Status: Chronic (3) Hypertensive heart disease with congestive heart failure: Status: Chronic (4) Hyperlipemia: Status: Chronic (5) Stenosis of inferior mesenteric artery: Status: Acute (6) Hypertension: Status: Acute (7) PAD (peripheral artery disease): Status: Chronic (8) S/P AAA repair: Status: Chronic Assessment and Plan Assessment and Plan for All Diagnoses:: Plan: 1. The patient presented to the emergency department with chest pain. He did rule out for an ME. His symptoms were consistent with unstable angina and the patient underwent left cardiac catheterization yesterday. He was found to have severe three-vessel disease and will be referred for coronary artery bypass grafting to Dr. Arlyn Osullivan at [facility]. 2. The patient will need to remain on aspirin 81 mg daily. 3. The patient did have a recent CAT scan of his abdomen which shows severe ADAMAR[place] stenosis. He denies any recent weight loss and denies any early satiety. He does have some diffuse abdominal pain. No intervention at this time per Dr. Becerra. 4. Coronary artery disease is present and he will need bypass surgery as mentioned above. 5. His blood pressure is well-controlled. 6. His LDL goal is less than 55. His LDL is currently 90. He is on Repatha. He is intolerant to statins. 7. The patient is stable for discharge home today with follow-up in cardiology clinic in 1 week. He will be referred to Dr. Diallo on an outpatient basis. 8. The patient will need to be discharged on the following cardiac medications: Aspirin 81 mg daily, Coreg 25 mg p.o. twice daily, Repatha 140 mg subcu every 2 weeks, Vascepa 1 g p.o. twice daily, isosorbide mononitrate 30 mg p.o. daily, Ranexa 500 mg p.o. twice daily. Thank you for the opportunity to help participate in the care of this patient. All recommendations and orders are per Dr. Uriostegui.
--- NOTE | 2023-11-16 11:36 | P.DS_ITS ---
General Admission date:: 11/14/23 Discharge date: 11/16/23 HPI HPI HPI: This is a 63-year-old male with extensive cardiac history including CAD status post stenting, AAA status postrepair, CHF, hypertension, hyperlipidemia, presented with chest pain. Patient states that chest pain started 2 AM today. Patient stated around 6pm tonight he started to feel worse with pain in his left armpit radiating down his left arm and nausea. He took two nitro SL and found that his BP was elevated. Patient was last seen by Cardiology last week for f/u CT angio that showed stable latent AAA graft, with occlusion of the proximal ADAMARIS. After this episode patient became concerned and decided to come to ED for evaluation. On arrival pain was improved, denied abdominal pain. Admitted for further work up. Hospital Course Hospital Course Hospital Course: 63-year-old male with extensive cardiac history including CAD status post stenting, AAA status postrepair, CHF, hypertension, hyperlipidemia, presented with chest pain. Patient states that chest pain started 2 AM today. on arrival pain has been improved. however patient still anxious about his conditions. he wants to see cardiology for evaluations. Troponin are negative, EKG is negative. ED requested admission for further work up and ruled out ACS. Medicine agreed for admission. Plan as follow; -Unstable angina: CAD AAA s/p graft stent. stable HTN with HF plan for cardiac cath this morning, started on renexa and imdur per cardiology cath report IMPRESSION Severe three-vessel coronary artery disease PLAN 1. Maximize antianginal medications making sure patient remains on aspirin and high intensity statin 2. Based on the angiographic results patient could be referred to [facility] on an outpatient basis for evaluation of CABG. If patient's symptoms make an outpatient approach prohibitive then recommend transferring patient to [facility] for bypass surgery during this index hospitalization 3. Continue antianginal medications and consider starting on heparin if patient is going to be transferred this admission follow up with Cardiology and cardiothoracic surgery as OP Patient was seen and evaluated at the bedside on the day of discharge. Patient wishes to be discharged. All patient questions were answered and patient was given time to ask questions. Patient was discharged in stable condition. Patient understands that she can return to ER in case of any sudden changes in health. Total time spent on DC - 38 mins Exam Data for Last 24 hours Vital signs and Labs for Last 24 Hours: Temp Pulse Resp BP Pulse Ox O2 Del Method 99.3 F 64 16 144/87 H 96 Room Air 11/16/23 08:00 11/16/23 08:00 11/16/23 08:00 11/16/23 08:00 11/16/23 08:00 11/16/23 11:00 Laboratory Results - last 24 hr 11/16/23 05:30: WBC 7.2, RBC 4.41 L, Hgb 14.0 L, Hct 42.8, MCV 96.9 H, MCH 31.7 H, MCHC 32.7, RDW 13.3, Plt Count 182, MPV 7.7, Neut % (Auto) 57.7, Lymph % (Auto) 32.9, Wood % (Auto) 6.3, Eos % (Auto) 2.1, Baso % (Auto) 1.0, Neut # (Auto) 4.1, Lymph # (Auto) 2.4, Wood # (Auto) 0.5, Eos # (Auto) 0.2, Baso # (Auto) 0.1, Sodium 140, Potassium 4.1, Chloride 110 H, Carbon Dioxide 30, Anion Gap 4.1 L, BUN 14 D, Creatinine 1.10, Estimated Creat Clear 77, Estimated GFR 68, Est GFR ( Amer) 82, Glucose 89, Calcium 8.8 I & O for Last 24 hours: Intake & Output 11/13/23 11/14/23 11/15/23 11/16/23 23:59 23:59 23:59 23:59 Intake Total 1196 / 1196 540 / 540 Output Total 1302 / 1602 500 / 500 Balance -106 / -406 40 / 40 Weight 83.461 kg 80.876 kg 79.3 kg Constitutional Constitutional: no acute distress *Routine HEENT Exam Head: Present normocephalic Eye: Present EOMI and PERRL ENT: Present mucous membranes moist *Routine Neck Exam Neck: Present supple; Absent lymphadenopathy *Routine Respiratory Exam Respiratory: Present CTA bilaterally *Routine Cardiovascular Exam Cardiovascular: Present RRR *Routine Abdominal Exam Abdominal: Present soft and normoactive bowel sounds; Absent tenderness *Routine Extremities Exam Extremities: Absent cyanosis, clubbing or edema *Routine Skin Exam Skin: Present warm; Absent rash *Routine Neurological Exam Neurological: Present alert and oriented X3 Results Data Completed and Pending Labs on day of discharge: Labs from last 24 hours 11/16/23 05:30 WBC 7.2 RBC 4.41 L Hgb 14.0 L Hct 42.8 MCV 96.9 H MCH 31.7 H MCHC 32.7 RDW 13.3 Plt Count 182 MPV 7.7 Neut % (Auto) 57.7 Lymph % (Auto) 32.9 Wood % (Auto) 6.3 Eos % (Auto) 2.1 Baso % (Auto) 1.0 Neut # (Auto) 4.1 Lymph # (Auto) 2.4 Wood # (Auto) 0.5 Eos # (Auto) 0.2 Baso # (Auto) 0.1 Sodium 140 Potassium 4.1 Chloride 110 H Carbon Dioxide 30 Anion Gap 4.1 L BUN 14 D Creatinine 1.10 Estimated Creat Clear 77 Estimated GFR 68 Est GFR ( Amer) 82 Glucose 89 Calcium 8.8 DS: Diagnosis Discharge Diagnosis (1) CAD (coronary artery disease): Status: Chronic Code(s): I25.10 - Atherosclerotic heart disease of [place] coronary artery without angina pectoris Qualifiers: Coronary Disease-Associated Artery/Lesion type: [place] artery [place] vs. transplanted heart: [place] heart Associated angina: with unstable angina Qualified Code(s): I25.110 - Atherosclerotic heart disease of [place] coronary artery with unstable angina pectoris (2) History of endovascular stent graft for abdominal aortic aneurysm (AAA): Status: Chronic Code(s): Z95.828 - Presence of other vascular implants and grafts (3) Hypertensive heart disease with congestive heart failure: Status: Chronic Code(s): I11.0 - Hypertensive heart disease with heart failure Qualifiers: Heart failure chronicity: chronic Heart failure type: diastolic Qualified Code(s): I11.0 - Hypertensive heart disease with heart failure (4) Hyperlipemia: Status: Chronic Code(s): E78.5 - Hyperlipidemia, unspecified Qualifiers: Hyperlipidemia type: familial hypercholesterolemia Qualified Code(s): E78.01 - Familial hypercholesterolemia (5) Stenosis of inferior mesenteric artery: Status: Acute Code(s): K55.1 - Chronic vascular disorders of intestine (6) Hypertension: Status: Acute Code(s): I10 - Essential (primary) hypertension Qualifiers: Hypertension type: primary hypertension Qualified Code(s): I10 - Essential (primary) hypertension (7) PAD (peripheral artery disease): Status: Chronic Code(s): I73.9 - Peripheral vascular disease, unspecified (8) S/P AAA repair: Status: Chronic Code(s): Z98.890 - Other specified postprocedural states; Z86.79 - Personal history of other diseases of the circulatory system Meds Home Medications and Allergies Home Medications Medication Instructions Recorded Confirmed Type aspirin 81 mg tablet,delayed 81 mg PO DAILY #90 tabs 12/29/19 11/15/23 Rx release (Adult Low Dose Aspirin) nitroglycerin 0.4 mg sublingual 0.4 mg sublingual Q5M PRN chest 01/11/23 11/15/23 Rx tablet pain #25 tabs ascorbic acid (vitamin C) 1,000 mg 1 g PO DAILY #30 tabs 05/08/23 11/15/23 Rx tablet (Vitamin C) cholecalciferol (vitamin D3) 25 1,000 unit PO DAILY 05/08/23 11/15/23 History mcg (1,000 unit) tablet (Vitamin D3) haider root extract 15 mg chewable 15 mg PO BID 05/08/23 11/15/23 History tablet carvedilol 25 mg tablet (Coreg) 25 mg PO BID 11/15/23 11/15/23 History evolocumab 140 mg/mL subcutaneous 140 mg SQ .EVERY 2 WEEKS 11/15/23 11/15/23 History pen injector (Repatha SureClick) icosapent ethyl 1 gram capsule 1 g PO BID 11/15/23 11/15/23 History (Vascepa) isosorbide mononitrate 30 mg 30 mg PO DAILY 30 days #30 tabs 11/16/23 Rx tablet,extended release 24 hr ranolazine 500 mg tablet,extended 500 mg PO BID 30 days #60 tabs 11/16/23 Rx release,12 hr New Prescriptions to Start Prescriptions: isosorbide mononitrate Erik,Irfan ranolazine Erik,Irfan Allergies Allergy/AdvReac Type Severity Reaction Status Date / Time clopidogrel [From Plavix] Allergy Mild Verified 05/08/23 10:38 Bwyxsuv-TYR-RsB Reductase Allergy Mild Verified 05/08/23 10:38 Inhibitor [Fbzqkhs-Byp-Smx Reductase Inhibitor] Penicillins Allergy Verified 05/08/23 10:38 gemfibrozil AdvReac Severe leg pain Verified 05/08/23 10:38 losartan AdvReac Verified 05/08/23 10:38 Sulfa (Sulfonamide AdvReac Verified 05/08/23 10:38 Antibiotics) Discharge Plan Disposition Patient Disposition: Home, Self-Care Condition: Fair Follow up Plan Follow up with: Latosha Madsen APRN [Nurse Practitioner] - 11/21/23 10:00 am Junior Becerra MD [Staff Physician] - 11/22/23 9:45 am Prescriptions/Medication Reconciliation: New isosorbide mononitrate 30 mg Tablet Extended Release 24 Hr 30 mg PO DAILY 30 Days Qty: 30 0RF ranolazine 500 mg Tablet Extended Release 12 Hr 500 mg PO BID 30 Days Qty: 60 0RF Continued aspirin [Adult Low Dose Aspirin] 81 mg tablet,delayed release (DR/EC) 81 mg PO DAILY Qty: 90 3RF ascorbic acid (vitamin C) [Vitamin C] 1,000 mg tablet 1 g PO DAILY Qty: 30 0RF cholecalciferol (vitamin D3) [Vitamin D3] 25 mcg (1,000 unit) tablet 1,000 unit PO DAILY haider root extract 15 mg tablet,chewable 15 mg PO BID nitroglycerin 0.4 mg tablet, sublingual 0.4 mg SUBLINGUAL Q5M PRN (Reason: chest pain) Qty: 25 3RF carvedilol [Coreg] 25 mg tablet 25 mg PO BID Rx Instructions: TAKE ONE TABLET BY MOUTH TWICE A DAY icosapent ethyl [Vascepa] 1 gram capsule 1 g PO BID Rx Instructions: TAKE ONE CAPSULE BY MOUTH TWICE A DAY Repatha SureClick 140 mg/mL pen injector 140 mg SQ .EVERY 2 WEEKS Rx Instructions: INJECT 140mg UNDER THE SKIN every TWO WEEKS Discontinued isosorbide mononitrate 30 mg tablet extended release 24 hr 15 mg PO DAILY Qty: 90 3RF Problem Reconciliation Problems Reviewed?: Yes Patient Discharge Instructions ACTIVITY: Ambulate as tolerated DIET: continue same diet Patient Instructions: DI for Angina, DI for Surgical Site Infection Providers Primary Care Provider: Provider,Referral Admit Provider: Manoj Valencia Attending Provider: Manoj Valencia
--- NOTE | 2023-11-19 11:41 | CARE MANAGER ---
Contacted patient related to hospital discharge. Patient states he is feeling much better. He has his new medications and is aware of follow up appointments. Denies questions or concerns at this time.
== END 2023-11-16 12:06 | disposition home or self-care (01) ==
LOC: ER 22:10 → 2ND 23:02
PROVIDERS: Internal Medicine; Nurse Practitioner Family; Admitting Provider Internal Medicine; Emergency Provider Emergency Medicine; Visit Provider Internal Medicine
DX: I25.110 Atherosclerotic heart disease of native coronary artery with unstable angina pectoris; Z95.828 Presence of other vascular implants and grafts; I11.0 Hypertensive heart disease with heart failure; E78.01 Familial hypercholesterolemia; I73.9 Peripheral vascular disease, unspecified; Z98.890 Other specified postprocedural states; Z86.79 Personal history of other diseases of the circulatory system; R10.84 Generalized abdominal pain; K55.1 Chronic vascular disorders of intestine; I50.22 Chronic systolic (congestive) heart failure; T82.855A Stenosis of coronary artery stent, initial encounter; Z79.899 Other long term (current) drug therapy; I77.1 Stricture of artery; I71.40 Abdominal aortic aneurysm, without rupture, unspecified
CPT/HCPCS: 36415; 71045; 80048; 80053; 80061; 83036; 83735; 83880; 84484; 85025; 85610; 92978; 92979; 93005; 93306; 93458; 99152; 99285; C1725; C1769; G0378; J1644; J2405; Q9967

== ENCOUNTER 2023-11-21 11:11 | Outpatient (CLI) | payer MEDICARE, OTHER, SELFPAY ==
--- NOTE | 2023-11-21 11:15 | XR_ITS ---
FINAL REPORT CLINICAL HISTORY: right lower rib pain post fx COMPARISON: None FINDINGS: A single view of the chest with 3 views of the ribs were obtained. There is no acute cardiopulmonary process. No pneumothorax is identified. Note is made of an aortic stent graft. No displaced rib fracture identified. IMPRESSION: No acute process. Reviewed, Interpreted and Dictated by Jesse Doty III, MD Transcribed by Staci Hernandez Authenticated and [facility]
== END 2023-11-21 23:59 | disposition home or self-care (01) ==
LOC: RAD 11:12
PROVIDERS: PCP Nurse Practitioner Family; Visit Provider Nurse Practitioner Family
DX: R07.81 Pleurodynia (principal)
CPT/HCPCS: 71101

== ENCOUNTER 2024-01-30 13:46 | Outpatient (RCR) | payer MEDICARE, OTHER, SELFPAY | END 2024-05-13 15:00 | disposition home or self-care (01) | LOC: PT 13:46 | PROVIDERS: Visit Provider Thoracic Surgery (Cardiothoracic Vascular Surgery) | DX: Z95.1 Presence of aortocoronary bypass graft (principal) | CPT/HCPCS: 93798 ==

== ENCOUNTER 2024-06-20 10:18 | Outpatient (CLI) | payer MEDICARE, OTHER, SELFPAY ==
[2024-06-20 14:09] LABS: Alanine Aminotransferase 31 U/L (12-78); Albumin Level 4.8 g/dl (3.5-5.0); Albumin/Globulin Ratio 1.8 (1.1-1.8); Alkaline Phosphatase 76 U/L (38-126); Anion Gap 14.1 mEq/L (5-15); Aspartate Amino Transferase 42 U/L (17-59); Bilirubin,Total 0.7 mg/dl (0.2-1.3); Blood Urea Nitrogen 13 mg/dl (9-20); Calcium 10.4 mg/dl (8.4-10.2); Carbon Dioxide 28 mmol/L (22.0-30.0); Chloride 104 mmol/L (98-107); Chol/HDL Ratio 3.7 (1-3.5); Cholesterol 206 mg/dl (140-200); Estimated Glomerular Filt Rate 67 ml/min (>60); GFR (African American) 82 ML/MIN (>60); Globulin 2.6 g/dL (1.3-3.2); Glucose 103 mg/dl (74-100); HDL Cholesterol 56 mg/dl (40-60); Potassium 4.1 mmoL/L (3.5-5.1); Sodium 142 mmol/L (136-145); Total Protein,Serum 7.4 g/dl (6.3-8.2)
[2024-06-20 14:10] LABS: Triglycerides 461 mg/dl (30-150)
[2024-06-20 14:20] LABS: Direct LDL Cholesterol 71.78 mg/dL (100-129)
[2024-06-20 14:41] LABS: Prostate Specific Ag Screen 2.3 ng/ml (0.0-4.0); Thyroid Stimulating Hormone 0.37 uIU/mL (0.465-4.68)
[2024-06-20 15:09] LABS: Vitamin B12 > 1000 pg/mL (239-931)
[2024-06-20 17:44] LABS: HIV (1&2) Antibody Rapid NONREACTIVE (NONREACTIVE)
[2024-06-21 09:20] LABS: HCV Ab Non Reactive (Non Reactive)
[2024-06-26 12:10] LABS: Triiodothyronine (T3) Free 2.7 pg/mL (2.0-4.4)
== END 2024-06-20 23:59 | disposition home or self-care (01) ==
LOC: LAB.DROPOF 06-22 09:24
PROVIDERS: PCP Nurse Practitioner Family; Visit Provider Nurse Practitioner Family
DX: Z11.59 Encounter for screening for other viral diseases (principal); I10 Essential (primary) hypertension; E78.1 Pure hyperglyceridemia; Z12.5 Encounter for screening for malignant neoplasm of prostate; Z11.4 Encounter for screening for human immunodeficiency virus [HIV]; R79.89 Other specified abnormal findings of blood chemistry
CPT/HCPCS: 80053; 80061; 82607; 84443; 84481; 86803; 87389; G0103

== ENCOUNTER 2024-08-05 13:23 | Outpatient (CLI) | payer MEDICARE, OTHER, SELFPAY ==
[2024-08-05 14:26] LABS: Free T4 (Free Thyroxine) 0.77 ng/dl (0.78-2.19)
[2024-08-05 14:28] LABS: T4 (Thyroxine) 7.5 ug/dl (5.53-11.0)
[2024-08-05 14:41] LABS: Thyroid Stimulating Hormone 1.52 uIU/mL (0.465-4.68)
[2024-08-06 08:13] LABS: Thyroid Peroxidase Antibodies 11 IU/mL (0-34)
== END 2024-08-05 23:59 | disposition home or self-care (01) ==
LOC: LAB 13:24
PROVIDERS: PCP Nurse Practitioner Family; Visit Provider Internal Medicine
DX: R79.89 Other specified abnormal findings of blood chemistry (principal); I25.10 Atherosclerotic heart disease of native coronary artery without angina pectoris; E78.01 Familial hypercholesterolemia; I50.32 Chronic diastolic (congestive) heart failure; I65.23 Occlusion and stenosis of bilateral carotid arteries; I10 Essential (primary) hypertension
CPT/HCPCS: 36415; 84436; 84439; 84443; 86376

== ENCOUNTER 2024-08-29 07:40 | Outpatient (CLI) | payer MEDICARE, OTHER, SELFPAY ==
--- NOTE | 2024-08-29 07:44 | CA_ITS ---
APPROVED REPORT EXAM: Comprehensive 2D, Doppler, and color-flow Echocardiogram Automobile Relocation Engineer: Pamella Frederick RDCS Ht: 5 ft 6 in Wt: 182lbs BSA: 1.92 BP: 168/117 mmHg Indications: RECENT CABG,CAD,HTN M-Mode Dimensions RVDd 1.73 cm (0.9-2.6) LA Diam 3.91 cm (1.9-4.0) LVDd 6.32 cm (3.5-5.7) LVDs 4.83 cm (3.5-5.7) IVSd 0.84 cm (0.6-1.1) PWd 0.89 cm (0.6-1.1) EF (Teich) 46.20% FS 23.60% EDV (Teich) 202.60 mL TAPSE 1.29 (<1.7) ESV (Teich) 109.10 mL LV Diastology E Decel Time 173 (160-240 msec) E/A Ratio 1.3 Aortic Valve TORRI Index 1.23 cm2/m2 AoV Peak Kyle. 174.0 (50-130 cm/s) AO Peak GR. 12.00 mmHg AO Mean GR. 6.00 (<5 mmHg) AO VTI 36.2 (18-25 cm) TORRI (VTI) 2.42 (2.5-4.5 cm2) Mitral Valve MV E Max Kyle. 76.0 (40-130 cm/s) MV A Velocity 57.0 (40-130 cm/s) E/A Ratio 1.35 MV PHT 51.0 ms Left Ventricle The left ventricle is normal size. The left ventricular systolic function is normal. The left ventricular ejection fraction is within the normal range. There is normal left ventricular wall thickness. There is normal LV segmental wall motion. The left ventricular diastolic function is normal. LVEF is 60%. Right Ventricle The right ventricle is normal size. The right ventricular systolic function is normal. Atria Left atrium is mildly dilated. The right atrium size is normal. There is no Doppler evidence of interatrial shunt. Aortic Valve The aortic valve is mildly thickened. There is no aortic valvular stenosis. No aortic regurgitation is present. Mitral Valve The mitral valve is normal in structure. No evidence of mitral valve stenosis. Trace mitral regurgitation. Tricuspid Valve Tricuspid valve is grossly normal in structure and function. Trace tricuspid regurgitation. There is insufficient TR jet to estimate RVSP. Pulmonic Valve The pulmonary valve is normal in structure. Trace pulmonic regurgitation. Great Vessels The aortic root is normal in size. IVC is normal in size and collapses >50% with inspiration. Pericardium There is no pericardial effusion. Other Information Study Quality: Fair Conclusion Normal biventricular systolic function. Mild LA dilation. No significant valvular stenosis or regurgitation. Electronically signed by : Tammy Uriostegui MD 09/04/2024 10:37:26
--- NOTE | 2024-08-29 07:44 | CT_ITS ---
FINAL REPORT TECHNIQUE: Pre-and postcontrast images of the abdomen were performed by computed tomography. Extensive 3-D reconstruction images were performed. A CTA was performed. This study was performed with techniques to keep radiation doses as low as reasonably achievable (ALARA). Individualized dose reduction techniques using automated exposure control or adjustment of mA and/or kV according to the patient's size were employed. CLINICAL HISTORY: AAA repair COMPARISON: 05/08/2023 FINDINGS: ABDOMEN: The lung bases are clear. No adrenal masses are identified. The liver, spleen and pancreas are unremarkable. CTA: There has been prior endovascular repair of an abdominal aortic aneurysm, with the [place] aorta stable in appearance, measuring up to 35 mm on sagittal reconstruction images. No evidence of endoleak is seen. The superior mesenteric artery and celiac axis are patent. The ADAMARIS is proximally occluded, stable. There is high-grade right renal artery stenosis measuring approximately 70 to 80%. The left renal artery is widely patent. The proximal iliac arteries are widely patent. IMPRESSION: Prior endovascular repair of an abdominal aortic aneurysm with the [place] aorta measuring up to 35 mm on sagittal reconstructions. No evidence of endoleak is seen. High-grade right renal artery stenosis measuring approximately 70 to 80%. Reviewed, Interpreted and Dictated by Blas Patel MD Transcribed by Radha Meza Authenticated and [facility]
[2024-08-29 08:07] LABS: Blood Urea Nitrogen 13 mg/dl (9-20); Estimated Glomerular Filt Rate 67 ml/min (>60); GFR (African American) 82 ML/MIN (>60)
[2024-08-29] MEDS: SODIUM CHLORIDE 0.9% 10ML SYR (RAD ONLY) 10 ML IV (08:56)
[2024-08-29] MEDS: IOPAMIDOL-370 (76%);100ML BOTTLE 80 ML IV (08:56)
[2024-08-29] MEDS: 0.9 % SODIUM CHLORIDE 50 ML VIAL IV (08:56)
== END 2024-08-29 23:59 | disposition home or self-care (01) ==
LOC: RAD 07:44
PROVIDERS: PCP Nurse Practitioner Family; Visit Provider Nurse Practitioner Family
DX: I71.40 Abdominal aortic aneurysm, without rupture, unspecified (principal); I11.0 Hypertensive heart disease with heart failure; I50.32 Chronic diastolic (congestive) heart failure; I25.10 Atherosclerotic heart disease of native coronary artery without angina pectoris; Z95.1 Presence of aortocoronary bypass graft; E78.01 Familial hypercholesterolemia; I65.23 Occlusion and stenosis of bilateral carotid arteries; I73.9 Peripheral vascular disease, unspecified; Z95.828 Presence of other vascular implants and grafts; Z98.890 Other specified postprocedural states; Z86.79 Personal history of other diseases of the circulatory system; E78.1 Pure hyperglyceridemia
CPT/HCPCS: 36415; 74175; 82565; 84520; 93306; Q9967

== ENCOUNTER 2025-05-20 07:57 | Outpatient (CLI) | payer MEDICARE, OTHER, SELFPAY ==
--- NOTE | 2025-05-20 | CA_ITS ---
APPROVED REPORT Exam: Exercise Treadmill Technologist: Anamika Diane Ht: 5 ft 6 in Wt: 174 lbs BSA: 1.88 m2 HR: 64 bpm BP: 155/64 mmHg Indications: Dyspnea, Coronary Artery Disease Stress Test Details Test: Exercise stress testing was performed using a Ren protocol. HR Resting HR: 64 bpm Max Heart Rate (APMHR): 155.352617 bpm Max HR Achieved: 129 bpm Target HR (85% APMHR): 131.499344 bpm % of APMHR: 83.23 Recovery HR: 83 bpm BP Resting BP: 155.0/64.0 mmHg Max BP: 184.0/92.0 mmHg Recovery BP: 166.0/85.0 mmHg ECG Resting ECG: Sinus rhythm Stress ECG Conclusion Requested to stop test due to dyspnea. Symptoms: Dyspnea Arrhythmias/Ectopy: PAC/PVC/Ventricular couplet ST-T Changes: [address] segment depression - multiple leads. Conclusion: Abnormal ECG tracing Electronically signed by : Tammy Uriostegui MD 05/20/2025 12:33:25
--- NOTE | 2025-05-20 08:00 | NM_ITS ---
APPROVED REPORT Exam: Nuclear Stress Test Indication: SOB, HTN, High cholesterol, Family history, CAD, CABG Patient Location: Outpatient Stress Tech: Anamika Diane NM Tech:Erin Patton, ARRT, RT (R)(N) Ht: 5 ft 6 in Wt: 174 lbs HR: 68 bpm BP: 155/64 mmHg BSA: 1.88 m2 TID: 1.38 BMI: 28.0 History: SOB, HTN, High cholesterol, Family history, CAD, CABG Procedure: Patient exercised on Ren protocol 6:09 minutes and sec, resting heart rate 68 bpm, resting blood pressure 155/64 mmHg, with exercise maximum heart rate achived was 129 bpm which is 83 % of the maximum predicted heart rate and blood pressure was 184/92 mmHg. Test was stopped due to SOB. Patient denied any complaint of chest pain. Patient has average exercise capacity, achieved 7.1 METs of workload on treadmill, the blood pressure response to exercise was normal. Cardiac Stress and Resting SPECT Images: Cardiac Stress and Resting SPECT images were obtained using technetium 99m Myoview 32.3 mCi stress and 10.69 mCi at rest. Resting and stress imaging in supine and prone positions demonstrate a medium-sized, moderate, partially reversible perfusion defect in the mid to distal anterior LV wall. There is also increase in transient ischemic dilatation ratio (TID 1.38), which may be suggestive of possible multivessel disease or balanced ischemia. Gated imaging demonstrates normal global LV systolic function. LVEF is calculated at 53%. Conclusion: Medium-sized, moderate, partially reversible perfusion defect in the mid to distal anterior LV wall. Findings are suggestive of partial reversible ischemia. There is also increase in transient ischemic dilatation ratio (TID 1.38), which may be suggestive of possible multivessel disease or balanced ischemia. Gated imaging demonstrates normal global LV systolic function. LVEF is calculated at 53%. Electronically signed by : Tammy Uriostegui MD 05/20/2025 12:32:19
--- OUTSIDE RECORDS SUMMARY | 2025-05-20 08:01 | XMS_ITS | Encounter Summary ---
Author Organization [facility] Address [address] [place] [address] Care Team Providers Care [place] Program Coordinator Name Role Phone Yael Lin DO Primary Care Provider [phone] Encounter Details Date Type Department Care Team (Late st Contact Info) Description 11/28/2011 Telephone [facility] [facility] [id number] [place] [address] [address] [place] [address] Mable Pace APRN [address] [place] [address] [address] [place] [address] Social History Tobacco Use Types Packs/Day Years Used Date Smoking Tobacco: Former Cigarettes 3 15 1 09/03/1994 - 07/03/2010 Smokeless Tobacco: Never Alcohol Use Standard Drinks/Week Comments No 0 (1 standard drink = 0.6 oz pur e alcohol) Sex and Gender Information Value Date Recorded Sex Assigned at Not on file Legal Sex Male 11:06 PM EST Gender Identity Not on file Sexual Orientation Not on file documented as of this encounter Miscellaneous Notes * Telephone Encounter - Michela Blanc LPN - 11/29/2011 8:47 AM EDT Called and notified pt of new meds and future labs and pt stated he did not know if he will take them or not Pt encouraged and educated on meds * Telephone Encounter - Mable Pace - 11/28/2011 3:09 PM EDT Have added zetia and tricor to pts meds please call him and let him know to start them. I want him to start zetia for 1 week and if he tolerates zetia then add tricor. He should be able to tolerate these meds as they are not statins. However i do not want him to start them at the same time Will order recheck of labs in 3 months to assess response documented in this encounter Plan of Treatment Not on file documented as of this encounter Visit Diagnoses Diagnosis CAD (coronary artery disease) Coronary atherosclerosis of unspecified type of vessel, [place] or graft HLD (hyperlipidemia) Other and unspecified hyperlipidemia Hypertriglyceridemia Pure hyperglyceridemia documented in this encounter Care Teams [place] Program Coordinator Relationship Specialty Start Date End Date Yael Lin DO [address] [place] [id number] PCP - General Family Medicine 09/23/10 12/09/14 documented as of this encounter
--- OUTSIDE RECORDS SUMMARY | 2025-05-20 08:01 | XMS_ITS | Encounter Summary ---
Author Organization [facility] Address [address] [place] [address] Care Team Providers Care Resident Surgeon Name Role Phone Yael Lin DO Primary Care Provider [phone] Reason for Visit * Reason Onset Date Comments Medications Refill 11/04/2010 Tramadol 50 m g Encounter Details Date Type Department Care Team (Late st Contact Info) Description 11/04/2010 Refill [facility] [place] [address] [place] [id number] Suze Curran LPN Medications Refill (Tramadol 50 mg) Social History Tobacco Use Types Packs/Day Years Used Date Smoking Tobacco: Former Cigarettes 3 15 1 09/03/1994 - 07/03/2010 Smokeless Tobacco: Never Alcohol Use Standard Drinks/Week Comments Yes 0 (1 standard drink = 0.6 oz pur e alcohol) whiskey Sex and Gender Information Value Date Recorded Sex Assigned at Not on file Legal Sex Male 11:06 PM EST Gender Identity Not on file Sexual Orientation Not on file documented as of this encounter Miscellaneous Notes * Telephone Encounter - Suze Curran LPN - 11/04/2010 4:[address] Becerra voice order for Tramadol 50 mg #90 with no refills. Called patient and instructed that will need to make appointment if needing any further refills. Patient's spouse voiced understanding. (Epic would not allow the order for Tramadol 50 mg to be entered) documented in this encounter Plan of Treatment Not on file documented as of this encounter Visit Diagnoses Diagnosis Unspecified hypertensive heart disease without heart failure Mixed hyperlipidemia Tobacco abuse Tobacco use disorder CAD (coronary artery disease) Coronary atherosclerosis of unspecified type of vessel, [place] or graft AAA (abdominal aortic aneurysm) without rupture Abdominal aneurysm without mention of rupture documented in this encounter Care Teams Resident Surgeon Relationship Specialty Start Date End Date Yael Lin DO [address] [place] [address] PCP - General Family Medicine 09/23/10 12/09/14 documented as of this encounter
--- OUTSIDE RECORDS SUMMARY | 2025-05-20 08:01 | XMS_ITS | Clinical Summary ---
Author Organization [facility] Address [address] [place] [address] Care Team Providers Care Solutions Market Consultant Name Role Phone Latosha Madsen APRN Primary Care Provider [phone] Junior Becerra MD Unavailable [phone] Allergies Active Allergy Reactions Criticality Noted Date Comments Clopidogrel Unknown - Patient states they do not know rxn details Low 12/06/2023 Gemfibrozil Other - please docum ent in the comment field High 12/06/2023 Leg pain Losartan Unknown - Patient states they do not know rxn details Low 12/06/2023 Penicillins Unknown - Patient states they do not know rxn details Medium 12/06/2023 Father experienced allergic reaction Statins Other - please docum ent in the comment field Low 12/06/2023 Myalgia Sulfa Drugs Unknown - Patient states they do not know rxn details Low 12/06/2023 Medications Ascorbic Acid (vitamin C) 500 MG tablet Take 1 tablet (500 mg) by mouth 1 (one) time each day. Active ASPIRIN 81 MG chewable tablet Chew 1 tablet (81 mg) 1 (one) time each day. Active cholecalciferol 25 MCG (1000 UT) tablet Take by mouth 1 (one) time each day. Active EVOLOCUMAB SC Inject 140 mg under the skin every 14 (fourteen) days. Last dose 12/11/2023 Active nitroglycerin (Nitrostat) 0.[address] 1 tablet (0.4 mg) under the tongue every 5 (five) minutes if needed for chest pain. Active Icosapent Ethyl (Vascepa) 1 g capsule Take 1 capsule (1 g) by mouth 2 (two) times a day with meals. Active prasugrel (Effient) 10 MG tablet Take 1 tablet (10 mg) by mouth 1 (one) time each day. 4 Active acetaminophen (Tylenol) 325 MG tablet Take 2 tablets (650 mg) by mouth every 4 (four) hours if needed for pain, headaches or fever. 100 tablet 4 Active methocarbamol (Robaxin) 500 MG tablet Take 1 tablet (500 mg) by mouth 4 (four) times a day for 10 days. 40 tablet 4 Active metoprolol tartrate (Lopressor) 25 MG tablet Take 1 tablet (25 mg) by mouth 3 (three) times a day. 90 tablet 2 4 Active traMADol (Ultram) 50 MG tablet Take 1 tablet (50 mg) by mouth every 6 (six) hours if needed for severe pain for up to 20 doses. 20 tablet 4 Active Active Problems Problem Noted Date Diagnosed Date BMI 28.0-28.9,adult 01/24/2024 Leukocytosis 12/24/2023 Hypocalcemia 12/24/2023 Hypertriglyceridemia 12/24/2023 H/O heart artery stent 12/24/2023 Coronary artery disease involving left main angelita nary artery 12/19/2023 Overview (12/19/2023): S/p 3v CABG with Dr. Houser 12/19/23 ASA, beta elvie when appropriate Has statin intolerance, will likely require Zetia when appropriate Acute blood loss anemia 12/19/2023 Overview (12/19/2023): Monitor chest tube output Transfuse as needed Tick bite of foot 12/19/2023 Overview (12/20/2023): - 2 ticks removed from patient - 200mg Doxycycline - Rickettsial labs from 12/19 S/P CABG x 3 12/19/2023 Overview (12/19/2023): -recover per protocol Anxiety 12/06/2023 CAD (coronary artery disease) 12/06/2023 Overview (12/19/2023): See CAD above Diastolic heart failure 12/06/2023 History of endovascular sten t graft for abdominal aortic aneurysm (AAA) 12/06/2023 Hyperlipidemia 12/06/2023 Overview (12/19/2023): Statin intolerance, will likely start Zetia when appropriate Obesity (BMI 30-39.9) 12/06/2023 Overview (12/19/2023): Complicates recovery HTN (hypertension) 12/06/2023 Overview (12/19/2023): Resume home medications when appropriate and indicated Family history of premature CAD 12/06/2023 Presence of other vascular implants and grafts 1 Resolved Problems Problem Noted Date Diagnosed Date Resolved Date Paroxysmal atrial fibrillation 12/24/2023 12/24/2023 Postoperative nausea 12/24/2023 024 Hypermagnesemia 12/24/2023 12/24/2023 Hypophosphatemia 12/24/2023 12/24/2023 Hyperphosphatemia 12/24/2023 12/24/2023 Dyspnea on exertion 12/24/2023 12/24/19 24 Hypokalemia 12/24/2023 12/24/2023 Hyponatremia 12/24/2023 12/24/2023 Hyperkalemia 12/24/2023 12/24/2023 Transient hyperglycemia post procedure 12/24/2023 12/24/2023 Ileus 12/20/2023 12/24/2023 Overview (12/20/2023): Reglan scheduled KUB in the AM CLD Low cardiac output syndrome 12/20/2023 12/24/2023 Overview (12/20/2023): Epi gtt, wean to 0.01 Wean to off Q 4 hrs Cardiac volume overload 12/20/2023 06/1 Overview (12/20/2023): -diuresis per protocol Acute respiratory failure with hypoxia 12/19/2023 12/20/2023 Overview (12/19/2023): Wean ventilator as able Thrombocytopenia 12/19/2023 12/24/2023 Overview (12/19/2023): Monitor and transfuse as indicated Abdominal aortic aneurysm 12/06/2023 Overview (12/19/2023): S/p EVAR in 2018 Angina pectoris 12/06/2023 12/20/2023 Status post endovascular ane urysm repair (EVAR) 07/16/2017 04/05/2025 Family History Medical History Relation Name Comments Heart disease Brother 1 Heart disease Brother 2 Hypertension Brother 2 Aneurysm Father Heart disease Father Hypertension Father Cancer Mother Aneurysm Paternal Grandfather Heart disease Sister Hypertension Sister Anesthesia problems Neg Hx Malig Hyperthermia Neg Hx Relation Name Status Comments Brother 1 Other Brother 2 Alive Father Mother Paternal Grandfather Sister Social History Tobacco Use Types Packs/Day Years Used Date Smoking Tobacco: Former Cigarettes 2 15 S tarted: 1994 Smokeless Tobacco: Never Alcohol Use Standard Drinks/Week Comments Never 0 (1 standard drink = 0.6 oz pur e alcohol) Social Connection and Isolation Panel Answer Date Recorded Frequency of Communication with Friends and Fami ly Not on file 12/20/2023 Frequency of Social Gatherings with Friends and Family Not on file 12/20/2023 Attends Caodaism Services Not on file 12/19 Active Member of Clubs or Organizations Not on f ile 12/20/2023 Attends Club or Organization Meetings Not on harley e 12/20/2023 Are you , , di vorced, , never , or living with a partner? 12/20/2023 Hunger Vital Sign Answer Date Recorded Within the past 12 months, y ou worried that your food would run out before you got the money to buy more. Never true 12/20/19 24 Within the past 12 months, t he food you bought just didn't last and you didn't have money to get more. Never true 12/20/2023 PRAPARE - Transportation Answer Date Re corded In the past 12 months, has l ack of transportation kept you from medical appointments or from getting medications? No 12/2023 In the past 12 months, has l ack of transportation kept you from meetings, work, or from getting things needed for daily living? No 12/20/2023 Housing Stability Vital Sign Answer Richard e Recorded In the last 12 months, was t here a time when you were not able to pay the mortgage or rent on time? No 12/20/2023 Number of Places Lived in the Last Year Not on f ile 12/20/2023 In the last 12 months, was t here a time when you did not have a steady place to sleep or slept in a retirement (including now)? No 12/20/2023 CAGE ASSESSMENT Answer Date Recorded Cage unable to access Not on file 12/22/2023 Cage max number of drinks Not on file 2023 Cage Beverages a week Not on file 12/22/2023 Have you ever felt you should CUT down on your d rinking? 0 12/22/2023 Have you been ANNOYED by people criticizing your drinking? 0 12/22/2023 Have you felt GUILTY about your drinking? 0 12/22/2023 Have you had a drink first t domenic in the morning (E[employer]-PHOTOGRAPHIC SUPERVISOR) to steady your nerves or to get rid of a hangover? 0 12/22/2023 CAGE Questionnaire Score 0 024 Utilities Answer Date Recorded In the past 12 months has th e MAPPING, gas, oil, or water company threatened to shut off services in your home? No 12/20/2023 Sex and Gender Information Value Date Recorded Sex Assigned at Not on file Legal Sex Male 3:01 PM EDT Gender Identity Not on file Sexual Orientation Not on file Occupation Industry Job Start Date Job End Date disabled Not on file Not on file Not on file Last Filed Vital Signs Vital Sign Reading Time Taken Comments Blood Pressure 138/91 01/24/2024 10:08 AM EDT Pulse 72 01/24/2024 10:00 AM EDT Temperature 36.9 C (98.5 F) 12/24/2023 7:20 AM EDT Respiratory Rate 20 12/24/2023 7:20 AM EDT Oxygen Saturation 99% 01/24/2024 10:00 AM EDT Inhaled Oxygen Concentration - - Weight 80 kg (176 lb 7.7 oz) 01/24/2024 10:00 AM EDT Height 166.4 cm (5' 5.5 ) 01/24/2024 10:00 AM ED T Body Mass Index 28.92 01/24/2024 10:00 AM EDT Plan of Treatment Health Maintenance Due Date Last Done Comments [facility]-Depression Screening 1960 [facility]-Hepatitis C Screening 1960 [facility]-Medicare Annual Wellness (AWV) 1960 [facility]-Infant/Child/Adol SDOH Screenings 1960 [facility]- SDOH Screenings 1978 [facility]-Adult SDOH Screenings 1978 [facility]-DTaP,Tdap,and Td Vaccines (1 - Tdap) 1979 CT Colonography 2005 Colonoscopy 2005 FIT-DNA 2005 FIT 2005 FOBT 2005 Sigmoidoscopy 2005 [facility]-Colorectal Cancer Screening 2005 [facility]-Pneumococcal Vaccine: 50+ Years (1 of 1 - PCV) 2010 [facility]-Zoster Vaccines (1 of 2) 2010 [facility]-RSV Vaccine: 60+ Years or (1 - Risk 60-74 years 1-dose series) 2020 PLL-HBHLD-19 Vaccine ( season) 2025 01/30/2022, 06/24/2021, 10/16/2020, Additional history exists [facility]-Influenza Vaccine (#1) 2025 [facility]-Abdominal Aortic Aneurysm (AAA) Screening 2025 [facility]-Obesity Intervention Completed 024, 12/06/2023, 12/06/2023 HPV Vaccines Aged Out No longer eligi ble based on patient's age to complete this topic [facility]-HIB Vaccines Aged Out No longer e ligible based on patient's age to complete this topic [facility]-Hepatitis A Vaccines Aged Out No longer eligible based on patient's age to complete this topic [facility]-IPV Vaccines Aged Out No longer e ligible based on patient's age to complete this topic [facility]-Rotavirus Vaccines Aged Out No lo nger eligible based on patient's age to complete this topic Additional Health Concerns Infection Onset Date Last Indicated Ehrlichiosis 12/19/2023 12/19/2023 Insurance [facility] MED[facility] MEDICARE Advance Directives * Full Code (Latest Code Status on File) Date Activated Date Inactivated Comments 12/19/2023 3:15 PM 12/24/2023 1:36 PM Question Answer Comments Patient has decision-making capacity? Yes Care Teams Solutions Market Consultant Relationship Specialty Start Date End Date Latosha Madsen APRN [address] [place] [address] PCP - General 12/06/23 Junior Becerra MD [address] [facility] [address] [place] [address] Referring Physician Cardiology 12/22/23
--- OUTSIDE RECORDS SUMMARY | 2025-05-20 08:01 | XMS_ITS | Clinical Summary ---
Author Organization [facility] Address [address] [place] [address] Care Team Providers Care Intranet Specialist Name Role Phone Unavailable Primary Care Provider Unavailabl e Social History Tobacco Use Types Packs/Day Years Used Date Smoking Tobacco: Never Assessed Sex and Gender Information Value Date Recorded Sex Assigned at Not on file Legal Sex Male 1:44 PM EST Gender Identity Not on file Sexual Orientation Not on file Plan of Treatment Health Maintenance Due Date Last Done Comments HEPATITIS C VIRUS SCREENING 1960 TETANUS 1960 TDAP (ADULT) 1979 LIPID SCREENING 2000 COLORECTAL CANCER SCREENING DISCUSSION 2005 PNEUMOCOCCAL VACCINE SERIES (1 of 1 - PCV) 2010 ZOSTER (SHINGLES) VACCINE (1 of 2) 2010 PROSTATE CANCER SCREENING DISCUSSION 2015 COVID-19 VACCINE ( - 2024-2 6 season) 2025 INFLUENZA VACCINE (#1) 2025 ABDOMINAL AORTIC ANEURYSM HI GH RISK SCREEN 2025 RSV VACCINE (1 - 1-dose 75+ series) 2035 HEP B VACCINE Aged Out No longer elig ible based on patient's age to complete this topic
--- OUTSIDE RECORDS SUMMARY | 2025-05-20 08:01 | XMS_ITS | Encounter Summary ---
Author Organization [facility] Address [address] [place] [address] Care Team Providers Care Risk Investigator Name Role Phone RileyYael Primary Care Provider [phone] Reason for Visit * Reason Onset Date Comments Medications Refill 10/13/2011 Encounter Details Date Type Department Care Team (Late st Contact Info) Description 10/13/2011 Refill [facility] [address] [place] [address] Junior Becerra MD [address] [place] [address] Medications Refill Social History Tobacco Use Types Packs/Day Years [...] on file documented as of this encounter Functional Status * Encounter Vitals Question Answer Date of Assessment Author BP 130/86 10/13/2011 11:39 AM EDT Roselyn Omalley LPN Pulse 60 10/13/2011 11:34 AM EDRoselyn Macdonald LPN Resp 18 10/13/2011 11:34 AM EDT Roselyn Omalley LPN Height 66.000 10/13/2011 11:34 AM EDT Roselyn Omalley LPN Weight 2796.8 10/13/2011 11:34 AM EDT Roselyn Omalley LPN documented as of this encounter Mental Status * Question Answer Entry Date Author BP 130/86 10/13/2011 11:39 AM EDT Roselyn Omalley LPN Pulse 60 10/13/2011 11:34 AM EDT Roselyn Omalley LPN Resp 18 10/13/2011 11:34 AM EDT Roselyn Omalley LPN documented in this encounter Miscellaneous Notes * Telephone Encounter - Binh Newsome LPN - 10/13/2011 12:24 PM EDT Called all of [place] prescriptions in to [facility] in [place]. documented in this encounter Plan of Treatment Not on file documented as of this encounter Visit Diagnoses Diagnosis Unspecified hypertensive heart disease without heart failure Mixed hyperlipidemia Tobacco abuse Tobacco use disorder CAD (coronary artery disease) Coronary atherosclerosis of unspecified type of vessel, [place] or graft AAA (abdominal aortic aneurysm) without rupture Abdominal aneurysm without mention of rupture documented in this encounter Care Teams Risk Investigator Relationship Specialty Start Date End Date Yael Lin DO [address] [place] [address] PCP - General Family Medicine 09/23/10 12/09/14 documented as of this encounter
--- OUTSIDE RECORDS SUMMARY | 2025-05-20 08:01 | XMS_ITS | Data Portability ---
Author Organization [facility] Address [address] [facility] [address] [place] [address] Care Team Providers Care Child Welfare Caseworker Name Role Phone ELIZABET CHANDLER Hand Surgeon TETE ISLAS [facility] kary YESENIA SUÁREZ Agricultural Extension Specialist MIKEY HARRIS Primary Care Provider Assessment Encounter Date Assessment Date Assessment LastModified by Organization Details LastModified Time 08/05/2024 08/05/2024 X-rays were reviewed, independently assessed, and discussed with the patient in the office today. Imaging reveals mild arthritic changes. No radiopaque findings are mineralizations in the areas of the soft tissue masses. Treatment options discussed including continued monitoring, MRI for further diagnostic workup, or surgical excision. Patient's preference is to move forward with more definitive excisional biopsy of both masses at this time. Patient will be scheduled for for excisional biopsy of his two dorsal hand masses at his convenience. Risk and benefits of the surgical procedure were explained to the patient in clinic today, including but not limited to incomplete symptom relief, recurrence, need for additional procedures, stiffness, damage to surrounding tissues/structures /nerves/vessels, wound complications, and infection. Patient expressed understanding and all questions were answered to the patient's satisfaction. [email or web address] Not available 08/05/2024 17:08:28 09/02/2024 09/02/2024 Patient can gradually resume activity with the hand as tolerated at this time. I discussed scar massage with patient in clinic today. As patient is doing well, he will return to office on as needed basis, however, he will call office with any additional questions or concerns. [email or web address] Not available 09/02/2024 10:24:30 Plan of Treatment Reminders Order Date Submit Date Provider Last Modified By Organization Details Last Modified Time Details Appointments None record ed. Lab None record ed. Referral None record ed. Procedures None record ed. Surgeries None record ed. Imaging None record ed. Medication Orders None record ed. Patient TargetsNo targets recorded. Patient InstructionsNo instructions recorded. Reason for Referral None Reported. Results Created Date Observation Date Name Description Value Unit Range Abnormal Flag Note LastModifiedBy Organization Detail LastModifiedTime 08/18/1908/18/2024 SURGI SYDNIE surgical SEE BELOW normal Surgi sydnie Patho logy Repor t NAME: MARTÍNEZ OVALLES PATH: [id number] DATE of : [birth year] 243 Copy to: Diagn osis: A) Right small finge r dorsa l phala nx mass, excis ion: Lobul ated matur e adipo se tissu e lila tible with lipom a B) Right hand 4th dorsa l space mass, excis ion: Lobul ated matur e adipo se tissu e lila tible with lipom a SOURC E OF SPECI MEN: FINGE R MASS, RIGHT , RIGHT SMALL FINGE R DORSA L PHALA NX MASS HAND MASS, RIGHT , RIGHT HAND DORSA L 4TH SPACE MASS CLINI SYDNIE INFOR MATIO N: R22.3 1 RIGHT HAND DORSA L MASS x2 Gross Descr iptio n: A) Nelson jansen name and date of verif ied. The speci men is recei yajaira in forma donald label ed with the nelson nt's name and desig nated righ t small finge r dorsa l phala nx mass and consi sts of lobul ated fatty tissu e (2.2 x 1.8 x 0.6 cm) which has a homog enous , soft and yello w cut surfa ce witho ut hemor rhage or necro sis. The speci men is inked blue. Repre senta tive secti ons are submi tted in one casse tte label ed A1. B) Nelson nt name and date of verif ied. The speci men is recei yajaira in forma donald label ed with the patie nt's name and desig nated righ t hand 4th dorsa l space mass and consi sts of lobul ated fatty tissu e (1.7 x 1.2 x 0.4 cm) which has a homog enous , soft and yello w cut surfa ce witho ut hemor rhage or necro sis. The speci men is inked blue. Entir rich submi tted in one casse tte label ed B1. JAB 08/18 01:07 PM Micro scopi c Descr iptio n: Micro scopi c exami natio n perfo rmed. AB PRITESH Leah CISNEROS MD Jesusita d Out Date: 08/19 14:17 Page 1 of 1 Not Available [facility] [address] [place] [address], [place], [address], 08/19/2024 14:17:27 08/05/19 25 08/05/2024 XR, hand, 3 or [facility] [address] [facility] [place] [place] [address] Patikade t Name: SURYA ware : [address] Orderi ng Provid er: ISABELLA CHANDLER EXAM DATE: 2024 EXAM: XR RT HAND 3 VIEWS HISTOR Y: Right hand cyst COMPAR YING: None. FINDIN GS: No discre te soft tissue mass is identi fied. There are mild to modera te degene rative change s in the distal radiou lnar joint, radioc arpal joint and base of the thumb. There are mild degene rative change s in the interp halang eal joints . No fractu re is identi fied. IMPRES TILA: 1. No discre te soft tissue mass is seen. Interp reted By: Abdoulaye olea MD Electr onical ly Signed By: Abdoulaye olea MD on 025 4:02 PM bdevers [facility] [place] [address] [place], [address], 08/05/2024 16:35:27 Result Notes Documentation Provider Name and Address Organization Details Recorded Time Xr, Hand, 3 Or More View : [facility] [address] [place] [address] Patient Name: TETE DOZIER Patient : 1960 Patient Ordering Provider: ELIZABET CHANDLER EXAM DATE: 08/05/2024 EXAM: XR RT HAND 3 VIEWS HISTORY: Right hand cyst COMPARISON: None. FINDINGS: No discrete soft tissue mass is identified. There are mild to moderate degenerative changes in the distal radioulnar joint, radiocarpal joint and base of the thumb. There are mild degenerative changes in the interphalangeal joints. No fracture is identified. IMPRESSION: 1. No discrete soft tissue mass is seen. Interpreted By: Issac Rosario MD ABET CHANDLER MD [address] [place] [address] [place], [address], [facility] 08/05/2024 16:35:27 Problems No Known Problems Procedures Surgical History Date Name Laterality Status Provider Name and Address Organization Details Recorded Time 08/18/2024 Op Note completed ELIZABET CHANDLER MD [address] [place] [address], [address], [facility] 08/18/2024 09:29:50 Imaging Results None recorded. Procedure Notes None recorded. Medical Equipment None Reported. Allergies Allergen ID Allergen Name Allergen Category Reaction Reaction Severity Criticality Documentation Date Start Date Code Code System Note Provider Name and Address Organization Details Recorded Time 025653 Plavix medicatio n Not available Not available Not available 08/05/2024 62155 2 RxNorm Scott Lira [facility] 14:59:30 253727 Substance with sulfonami de structure and antibacte rial mechanism of action (substanc e) medicatio n Not available Not available Not available 08/05/2024 38259 8003 [facility] 14:[facility] Medications Name Sig Start Date Stop Date Status Note LastModified by Organization Details LastModified Time tramadol 50 mg tablet TAKE 1 TABL PO Q 6 HRS PRN FOR SEVERE POST SURGICAL PAIN 2024 active Not Available Not Available Not Avai lable Neurontin 100 mg capsule TAKE 1 CAPSULE PO QHS FOR 1 WEEK 09/02 completed Not Available Not Available Not Available Asprin Ec Low Dose 81 mg tablet,paulino yed release Take 1 tablet every day by oral route. active Not Available Not Available No t Available senna 09/02 completed Not Available Not Available Not Available nitroglycer in active Not Available Not Available Not Available methocarbam ol active Not Available Not Available Not Available tramadol 08/05 completed Not Available Not Available Not Available Effient active Not Available Not Avail able Not Available Vitals Date Recorded Pain severity - 0-10 verbal numeric rating [Score] - Reported Body height Body mass index (BMI) Body weight Provider Name and Address Organization Details Last Updated DateTime 09/02/2024 0 166.37 cm 29.5 kg/m2 80100.63 g John Frost [facility] 09/02/2024 09:57:45 Social History None recorded. Functional Status None recorded. Mental Status None recorded. Family History Nothing Reported. Medical History No medical history recorded. Past Encounters Encounter ID Performer Location Encounter Start Date Encounter Closed Date Diagnosis/Indication Diagnosis SNOMED-CT Code Diagnosis ICD10 Code Diagnosis IMO Codes Diagnosis Note [id number] ELIZABET CHANDLER MD [facility] [address] [place] [address] 08/05/2024 14:33:40 08/06/2024 15:35:25 Mass of hand 656076528 R22.31 [id number] ELIZABET CHANDLER MD SURGERY SCHEDULE [address] [place] [address] 08/18/2024 06:40:34 08/18/2024 06:41:13 [id number] JALEN MOORE PA-C [facility] [address] [place] [address] 09/02/2024 09:52:39 09/02/2024 10:38:15 Postoperative care [id number] Z48.89 s/p Excisional biopsy of right small finger dorsal proximal phalanx soft tissue mass; Excisional biopsy of right dorsal hand fourth webspace soft tissue mass (DOS: 08/18/24) Surgical pathology report states specimens A) Right small finger dorsal phalanx mass, excision: Lobulated mature adipose tissue compatible with lipoma; B) Right hand 4th dorsal space mass, excision: Lobulated mature adipose tissue compatible with lipoma Health Concerns Section Related Observation LastModified by Organization Detai ls LastModified Time None Recorded Concern Status LastModified by Organization Details LastModified Time None Recorded Advance Directives Directive None Recorded Payers Insurance Date Sequence Insurance Name Policy Number Policy Bejarano Covered Member ID Bejarano Member ID Guarantor Name 08/30/2024 1 [facility] (MEDICARE REPLACEMENT/A DVANTAGE - HMO) ALEJODSRAO Tete Dozier [id number] Tete Dozier Notes Date Note Type Note Provider Name and Address Organization Details Recorded Time 5 text/html Patient is a 64 y/o RHD male who presents to the clinic for evaluation of two right dorsal hand masses. Reports first mass appeared over 15 years ago with development of a second mass thereafter. Areas have remained fairly stable in size and are freely mobile. He reports intermittent pain especially with direct pressure of excellently hit. Consult requested by: Mikey Hamilton [facility] Physician: Hand dominance: RightLocation: Right Hand Pain level: 4 /10 Onset: 10+ years Recent Surgery: NoProcedure:Date of surgery:Duration: In office procedure? No Previous upper extremity surgery? NoProcedure:Approximate date of surgery:Surgeon (if known):Have you or any of your immediate family members been seen by our hand surgeons before? No Currently employed?: Retired Patient arrived in: none Labor Service Representative Strength: right: left:Mr. Dozier is here for rt hand pain. He reports with intermittent pain about the SF and LF digits with cyst-like masses on the dorsal hand, SF MCP and between the SF and LF met shaft. 10 year onset ELIZABET CHANDLER MD [facility] [place], [address], [facility] 08/05/2024 17:08:38 5 text/html ROS as noted in the HPI Patient presents today for post op follow up visit. POST OP GLOBAL VISITDATE OF SURGERY: 08/18/2024 TIME POST SURGERY:15 daysSURGERY:-Excisional biopsy of right small finger dorsal proximal phalanx soft tissue mass-Excisional biopsy of right dorsal hand fourth webspace soft tissue mass INTERVAL HISTORY: PREOP SYMPTOMSBETTER PAIN LEVEL (VAS)0/10 OVERALL ASSESSMENTIMPROVING JALEN MOORE PA-C [address] [place], [address], [facility] 09/02/2024 10:24:45
--- OUTSIDE RECORDS SUMMARY | 2025-05-20 08:01 | XMS_ITS | Encounter Summary ---
Author Organization [facility] Address [address] [place] [address] Care Team Providers Care Public Service Representative Name Role Phone Yael Lin DO Primary Care Provider [phone] [phone] Encounter Details Date Type Department Care Team (Late st Contact Info) Description 11/28/2011 Orders Only [facility] [place] [id number] [address] [place] [address] [address] [place] [address] Mbale Pace APRN [address] [place] [address] [address] [place] [id number] CAD (coronary artery disease); HLD (hyperlipidemia); Hypertriglyceridemia Social History Tobacco Use Types Packs/Day Years [...] on file documented as of this encounter Plan of Treatment Not on file documented as of this encounter Visit Diagnoses Diagnosis CAD (coronary artery disease) Coronary atherosclerosis of unspecified type of vessel, knik or graft HLD (hyperlipidemia) Other and unspecified hyperlipidemia Hypertriglyceridemia Pure hyperglyceridemia documented in this encounter Care Teams Public Service Representative Relationship Specialty Start Date End Date Yael Lin DO [address] [place] [address] PCP - General Family Medicine 09/23/10 12/09/14 documented as of this encounter
--- OUTSIDE RECORDS SUMMARY | 2025-05-20 08:01 | XMS_ITS | Encounter Summary ---
Author Organization [facility] Address [address] [place] [address] Care Team Providers Care Food Storeroom Clerk Name Role Phone Yael Lin DO Primary Care Provider [phone] [phone] Encounter Details Date Type Department Care Team (Late st Contact Info) Description 11/01/2010 Telephone [place] [address] [place] [address] Junior Becerra MD [address] [place] [address] Social History Tobacco Use Types Packs/Day Years [...] Telephone Encounter - Suze Curran LPN - 11/08/2010 3:42 PM EDT Returned Fely's call and explained the impression of the us of aorta was normal and no evidence ofinfrarenal abdominal aortic or proximal iliac artery aneurysm. Explained to Fely that Dr. Becerracan interpret further when he Tom has his next appointment. Fely had no further questions. * Telephone Encounter - Szue Curran LPN - 11/02/2010 4:32 PM EDT Called Fely and explained we have recently converted to electronic medical records and we're in process of finding results. Told Fely would keep up with getting the report but might take a few extra days. * Telephone Encounter - Suze Curran LPN - 11/01/2010 5:54 PM EDT Returned Fely's call and explained that we're still working on report and did not forget about herrequest. Told her we would call tomorrow to follow up on getting results of US of abdomen. Fely stated pt not taking niacin because he's fearful of making skin red with rash. Told Fely to encourage him to take med because Dr. Becerra ordered it to control his LDL and he really needs to start this med. Fely said she would encourage him to take it. Explained that if he starts it and itdoesn't agree with him they can call the office and we'll talk to Dr. Becerra and try to get an alternate drug for him. Fely stated she would encourage him to begin the niacin. * Telephone Encounter - Jonna Mccarthy - 11/01/2010 10:17 AM EDT Patient is still waiting for results of ultrasound of anurysm of the aorta which was done 03-29-10 Imaging still says in process please call [phone] documented in this encounter Plan of Treatment Not on file documented as of this encounter Visit Diagnoses Not on filedocumented in this encounter Care Teams Food Storeroom Clerk Relationship Specialty Start Date End Date Yael Lin DO [address] [place] [address] PCP - General Family Medicine 09/23/10 12/09/14 documented as of this encounter
--- OUTSIDE RECORDS SUMMARY | 2025-05-20 08:01 | XMS_ITS | Clinical Summary ---
Author Organization [facility] Address [address] [place] [address] Care Team Providers Care Day Guard Name Role Phone Unavailable Primary Care Provider Unavailabl e Allergies Active Allergy Reactions Criticality Noted Date Comments Adhesive Tape-Silicones Rash 04/07/2011 Clopidogrel Reaction Unknown 03/25/2010 Xstzhit-Gya-Nzi Reductase Inhibitors Reaction Unknown 03/25/2010 Medications aspirin (ASPIRIN) 325 mg tablet Take 1 Tab by mouth Daily. 0 04/07/2011 Active traMADol (ULTRAM) 50 mg tabletIndications :Unspecified hypertensive heart disease without heart failure,Mixed hyperlipidemia,To bacco abuse,CAD (coronary artery disease),AAA (abdominal aortic aneurysm) without rupture Take 1 Tab by mouth Four times a day. 120 Tab 6 10/13/2011 Active lisinopril (PRINIVIL, ZESTRIL) 40 mg tablet Take 1 Tab by mouth Daily. 90 Tab 6 10/13/2011 Active carvedilol (COREG) 12.5 mg tabletIndications :Unspecified hypertensive heart disease without heart failure,Mixed hyperlipidemia,To bacco abuse,CAD (coronary artery disease),AAA (abdominal aortic aneurysm) without rupture Take 1 Tab by mouth Twice a day. 60 Tab 6 10/13/2011 Active amLODIPine (NORVASC) 5 mg tabletIndications :Unspecified hypertensive heart disease without heart failure,Mixed hyperlipidemia,To bacco abuse,CAD (coronary artery disease),AAA (abdominal aortic aneurysm) without rupture Take 1 Tab by mouth Daily. 30 Tab 6 10/13/2011 Active ezetimibe (ZETIA) 10 mg tabletIndications :CAD (coronary artery disease),HLD (hyperlipidemia), Hypertriglyceride caridad Take 1 Tab by mouth Daily. 30 Tab 12 11/28/2011 Active fenofibrate (FENOFIBRATE) 145 mg tabletIndications :CAD (coronary artery disease),HLD (hyperlipidemia), Hypertriglyceride caridad Take 1 Tab by mouth Daily. 30 Tab 12 11/28/2011 Active Active Problems Problem Noted Date Diagnosed Date Other dyspnea and respiratory abnormality 2009 Benign hyperten heart disease Hyperlipaemia Tobacco abuse Anxiety CAD (coronary artery disease) AAA (abdominal aortic aneurysm without rupture) [place] (myocardial infarction) Immunizations Immunization Administration Dates Next Due Moderna SARS-COV-2 Vaccination Full Dose 021,09/18/2020 Family History Medical History Relation Name Comments Heart Attack Brother Hypertension Brother Aortic Aneurysm Father Cancer Mother Relation Name Status Comments Brother Alive Father Mother Social History Tobacco Use Types Packs/Day Years [...] on file Sexual Orientation Not on file Last Filed Vital Signs Vital Sign Reading Time Taken Comments Blood Pressure 130/86 10/13/2011 11:39 AM EDT Rigth arm Pulse 60 10/13/2011 11:34 AM EDT Temperature 36.5 C (97.7 F) 04/07/2011 9:42 AM EDT Respiratory Rate 18 10/13/2011 11:3 4 AM EDT Oxygen Saturation 99% 04/07/2011 2:42 PM EDT Inhaled Oxygen Concentration - - Weight 79.3 kg (174 lb 12.8 oz) 012 11:34 AM EDT Height 167.6 cm (5' 6 ) 10/13/2011 11:3 4 AM EDT Body Mass Index 28.21 10/13/2011 11:34 AM EDT Plan of Treatment Health Maintenance Due Date Last Done Comments COLOGUARD 1960 COLONOSCOPY 1960 Colorectal Screening Combination 1960 FIT 1960 HEP C SCREENING 1960 SIGMOIDOSCOPY 1960 ANNUAL WELLNESS EXAM 1963 DTAP/TDAP/TD VACCINE (1 - Tdap) 1979 PNEUMOCOCCAL VACCINE 65+ YEA RS (1 of 1 - PCV) 2010 Shingles Vaccine (Shingrix) (1 of 2) 2010 COVID-19 Vaccine ( - 2024-2 6 season) 2025 10/16/2020, 09/18/2020 INFLUENZA VACCINE (#1) 2025 AAA SCREEN (Abdominal Aortic Aneurysm) 2025 CT Colonography Completed HEP A VACCINE Aged Out No longer elig ible based on patient's age to complete this topic HIB VACCINE Aged Out No longer eligi ble based on patient's age to complete this topic ROTOVIRUS VACCINE Aged Out No longer eligible based on patient's age to complete this topic Advance Directives * Full Code (Latest Code Status on File) Date Activated Date Inactivated Comments 04/07/2011 10:00 AM 04/07/2011 7:45 PM
[2025-05-20 09:05] VITALS: BP 155/64; BP 184/92; PULSE 64; RESP 14
[2025-05-20] MEDS: SODIUM CHLORIDE 0.9% 10ML SYR (RAD ONLY) 10 ML IV ×2 (09:25)
[2025-05-20] MEDS: ISOTOPE MYOVIEW (PER STUDY) 1 DOSE IV (09:25)
== END 2025-05-20 23:59 | disposition home or self-care (01) ==
LOC: RAD 07:58
PROVIDERS: PCP Nurse Practitioner Family; Visit Provider Nurse Practitioner Family
DX: I49.1 Atrial premature depolarization (principal); I49.3 Ventricular premature depolarization; I25.10 Atherosclerotic heart disease of native coronary artery without angina pectoris; I10 Essential (primary) hypertension; E78.00 Pure hypercholesterolemia, unspecified; R94.39 Abnormal result of other cardiovascular function study; R94.31 Abnormal electrocardiogram [ECG] [EKG]; Z95.1 Presence of aortocoronary bypass graft
CPT/HCPCS: 78452; 93017; 93018; A9502

== ENCOUNTER 2025-06-03 15:05 | Outpatient (CLI) | payer MEDICARE, OTHER, SELFPAY ==
[2025-06-03 15:38] LABS: Hematocrit 47.8 % (42.0-52.0); Hemoglobin 15.9 g/dL (14.1-18.0); Immature Granulocytes % 0.3 %; Mean Corpuscular HGB Conc 33.3 g/dL (31.8-35.4); Mean Corpuscular Hemoglobin 31.4 pg (27.0-31.2); Mean Corpuscular Volume 94.3 fl (80-94); Nucleated Red Blood Cells % 0 %; Platelet Count 227 K/mm3 (142-424); Red Blood Count 5.07 M/mm3 (4.60-6.20); Red Cell Distribution Width-SD 42.6 fL; White Blood Count 9.3 K/mm3 (4.8-10.8)
[2025-06-03 15:57] LABS: Alanine Aminotransferase 38 U/L (12-78); Albumin Level 4.9 g/dl (3.5-5.0); Alkaline Phosphatase 86 U/L (38-126); Anion Gap 11.6 mEq/L (5-15); Aspartate Amino Transferase 40 U/L (17-59); Bilirubin,Direct 0.2 mg/dl (0.0-0.4); Bilirubin,Indirect 0.3 mg/dL (0.0-0.9); Bilirubin,Total 0.5 mg/dl (0.2-1.3); Bilirubin,Unconjugated 0.3 mg/dL (0.0-1.1); Blood Urea Nitrogen 10 mg/dl (9-20); Calcium 10.4 mg/dl (8.4-10.2); Carbon Dioxide 28 mmol/L (22.0-30.0); Chloride 101 mmol/L (98-107); Cholesterol 279 mg/dl (140-200); Creatinine,Serum 0.90 mg/dl (0.66-1.25); Estimated Glomerular Filt Rate 85 ml/min (>60); GFR (African American) 102 ML/MIN (>60); Glucose 102 mg/dl (74-100); HDL Cholesterol 53 mg/dl (40-60); Magnesium 2.0 mg/dl (1.6-2.3); Potassium 4.6 mmoL/L (3.5-5.1); Sodium 136 mmol/L (136-145); Total Protein,Serum 7.8 g/dl (6.3-8.2)
[2025-06-03 16:13] LABS: Free T4 (Free Thyroxine) 0.76 ng/dl (0.78-2.19)
--- OUTSIDE RECORDS SUMMARY | 2025-06-03 16:15 | XMS_ITS | Clinical Summary ---
Author Organization [facility] Address [address] [place] [address] Care Team Providers Care Multi Craft Maintenance Technician Name Role Phone Unavailable Primary Care Provider [...]
[2025-06-03 16:24] LABS: Triglycerides 742 mg/dl (30-150)
[2025-06-03 16:28] LABS: Thyroid Stimulating Hormone 0.13 uIU/mL (0.465-4.68)
== END 2025-06-03 23:59 | disposition home or self-care (01) ==
LOC: LAB 15:06
PROVIDERS: PCP Nurse Practitioner Family; Visit Provider Nurse Practitioner Family
DX: I70.1 Atherosclerosis of renal artery (principal); R93.1 Abnormal findings on diagnostic imaging of heart and coronary circulation; R94.31 Abnormal electrocardiogram [ECG] [EKG]; Z95.1 Presence of aortocoronary bypass graft; Z68.30 Body mass index [BMI] 30.0-30.9, adult; R79.89 Other specified abnormal findings of blood chemistry; I73.9 Peripheral vascular disease, unspecified; I25.10 Atherosclerotic heart disease of native coronary artery without angina pectoris; I65.29 Occlusion and stenosis of unspecified carotid artery; I50.30 Unspecified diastolic (congestive) heart failure; I71.40 Abdominal aortic aneurysm, without rupture, unspecified
CPT/HCPCS: 36415; 80048; 80061; 80076; 83735; 84439; 84443; 85025

== ENCOUNTER 2025-06-18 15:51 | Outpatient (CLI) | payer MEDICARE, OTHER, SELFPAY ==
--- OUTSIDE RECORDS SUMMARY | 2025-06-18 15:54 | XMS_ITS | Clinical Summary ---
Author Organization [facility] Address [address] [place] [address] Care Team Providers Care Tip Finisher Name Role Phone Unavailable Primary Care Provider Unavailabl e Allergies Active Allergy Reactions Criticality Noted Date Comments Adhesive Tape-Silicones Rash 04/07/2011 Clopidogrel Reaction Unknown 03/25/2010 Wjboeix-Rnp-Wbi Reductase Inhibitors Reaction Unknown 03/25/2010 Medications aspirin [...] disease) AAA (abdominal aortic aneurysm without rupture) [place] (myocardial infarction) Immunizations Immunization Administration Dates Next [...]
--- OUTSIDE RECORDS SUMMARY | 2025-06-18 15:56 | XMS_ITS | Encounter Summary ---
Author Organization [facility] Address [address] [place] [address] Care Team Providers Care Police Commissioner Name Role Phone Yael Lin DO Primary Care Provider [phone] [phone] Encounter Details Date Type Department Care Team (Late st Contact Info) Description 11/01/2010 Telephone [place] [address] [place] [address] Junior Becerra MD [address] [place] [address] Social History Tobacco Use Types Packs/Day Years [...] no further questions. * Telephone Encounter - Suze Curran LPN - 11/02/2010 4:32 PM EDT [...] Imaging still says in process please call [phone] documented in this encounter Plan of Treatment Not on file documented as of this encounter Visit Diagnoses Not on filedocumented in this encounter Care Teams Police Commissioner Relationship Specialty Start Date End Date Yael Lin DO [address] [place] [address] PCP - General Family Medicine 09/23/10 12/09/14 documented as of this encounter
--- OUTSIDE RECORDS SUMMARY | 2025-06-18 15:56 | XMS_ITS | Encounter Summary ---
Author Organization [facility] Address [address] [place] [address] Care Team Providers Care Footwear Machinery Instructor Name Role Phone Yael Lin DO Primary Care Provider [phone] Reason for Visit * Reason Onset Date Comments Medications Refill 10/13/2011 Encounter Details Date Type Department Care Team (Late st Contact Info) Description 10/13/2011 Refill [facility] [address] [place] [address] Junior Becerra MD [address] [place] [address] Medications Refill Social History Tobacco Use Types [...] Called all of [facility] in to [facility] [place]. documented in this encounter Plan of Treatment Not on file documented as of this encounter Visit Diagnoses Diagnosis Unspecified hypertensive heart disease without heart failure Mixed hyperlipidemia Tobacco abuse Tobacco use disorder CAD (coronary artery disease) Coronary atherosclerosis of unspecified type of vessel, point [place] ira or graft AAA (abdominal aortic aneurysm) without rupture Abdominal aneurysm without mention of rupture documented in this encounter Care Teams Footwear Machinery Instructor Relationship Specialty Start Date End Date Yael Lin DO [address] [place] [address] PCP - General Family Medicine 09/23/10 12/09/14 documented as of this encounter
--- OUTSIDE RECORDS SUMMARY | 2025-06-18 15:56 | XMS_ITS | Encounter Summary ---
Author Organization [facility] Address [address] [place] [address] Care Team Providers Care Digital Ad Trafficker Name Role Phone Yael Lin DO Primary Care Provider +1 [phone] Encounter Details Date Type Department Care Team (Late st Contact Info) Description 11/28/2011 Orders Only [facility] [place] [id number] [place] [address] [address] [place] [address] Mable Pace APRN [address] [place] [address] [address] [place] [id number] CAD (coronary artery disease); HLD (hyperlipidemia); Hypertriglyceridemia [...] Coronary atherosclerosis of unspecified type of vessel, [place] or graft HLD (hyperlipidemia) Other and unspecified hyperlipidemia Hypertriglyceridemia Pure hyperglyceridemia documented in this encounter Care Teams Digital Ad Trafficker Relationship Specialty Start Date End Date Yael Lin DO [address] [place] [address] PCP - General Family Medicine 09/23/10 12/09/14 documented as of this encounter
--- OUTSIDE RECORDS SUMMARY | 2025-06-18 15:56 | XMS_ITS | Encounter Summary ---
Author Organization [facility] Address [address] [place] [address] Care Team Providers Care Sugar Trucker Name Role Phone Yael Lin DO Primary Care Provider [phone] Reason for Visit * Reason Onset Date Comments Medications Refill 11/04/2010 Tramadol 50 m g Encounter Details Date Type Department Care Team (Late st Contact Info) Description 11/04/2010 Refill [facility] [place] [address] [place] [id number] Suze Curran LPN Medications Refill (Tramadol 50 [...] Coronary atherosclerosis of unspecified type of vessel, [place] or graft AAA (abdominal aortic aneurysm) without rupture Abdominal aneurysm without mention of rupture documented in this encounter Care Teams Sugar Trucker Relationship Specialty Start Date End Date Yael Lin DO [address] [place] [address] PCP - General Family Medicine 09/23/10 12/09/14 documented as of this encounter
--- OUTSIDE RECORDS SUMMARY | 2025-06-18 15:56 | XMS_ITS | Clinical Summary ---
Author Organization [facility] Address [address] [place] [address] Care Team Providers Care Cigarette Examiner Name Role Phone Unavailable Primary Care Provider [...]
--- OUTSIDE RECORDS SUMMARY | 2025-06-18 15:56 | XMS_ITS | Encounter Summary ---
Author Organization [facility] Address [address] [place] [address] Care Team Providers Care Call Center Manager Name Role Phone Yael Lin DO Primary Care Provider [phone] Encounter Details Date Type Department Care Team (Late st Contact Info) Description 11/28/2011 Telephone [facility] [place] [id number] [place] [address] [address] [place] [address] Mable Pace APRN [address] [place] [address] [address] [place] [address] Social History Tobacco Use Types Packs/Day Years [...] Coronary atherosclerosis of unspecified type of vessel, [place] or graft HLD (hyperlipidemia) Other and unspecified hyperlipidemia Hypertriglyceridemia Pure hyperglyceridemia documented in this encounter Care Teams Call Center Manager Relationship Specialty Start Date End Date Yael Lin DO [address] [place] [id number] PCP - General Family Medicine 09/23/10 12/09/14 documented as of this encounter
--- OUTSIDE RECORDS SUMMARY | 2025-06-18 15:57 | XMS_ITS | Clinical Summary ---
Author Organization [facility] Address [address] [place] [address] Care Team Providers Care High [employer] Business Teacher Name Role Phone Latosha Madsen APRN Primary Care Provider [phone] Junior Becerra MD Unavailable [phone] Allergies Active Allergy Reactions Criticality Noted Date [...] and Family Not on file 12/20/2023 Attends [employer] Not on file 12/19 Active Member [...] place to sleep or slept in a half-way (including now)? 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 0 12/22/2023 CAGE Questionnaire Score 0 024 Utilities Answer Date Recorded In the past 12 months has th e [employer], gas, oil, or water company threatened to [...] - Risk 60-74 years 1-dose series) 2020 [id number] Vaccine ( season) 2025 01/30/2022, 06/24/2021, 10/16/2020, [...] Date Last Indicated Ehrlichiosis 12/19/2023 12/19/2023 Insurance [facility] MEDICAID [facility] MEDICARE Advance Directives * Full Code (Latest Code Status on File) Date Activated Date Inactivated Comments 12/19/2023 3:15 PM 12/24/2023 1:36 PM Question Answer Comments Patient has decision-making capacity? Yes Care Teams High School Business Teacher Relationship Specialty Start Date End Date Latosha Madsen APRN [address] [place] [address] PCP - General 12/06/23 Junior Becerra MD [address] [facility] [address] [place] [address] Referring Physician Cardiology 12/22/23
[2025-06-18 17:34] LABS: Free T4 (Free Thyroxine) 0.87 ng/dl (0.78-2.19)
[2025-06-18 17:52] LABS: Thyroid Stimulating Hormone 1.09 uIU/mL (0.465-4.68)
== END 2025-06-18 23:59 | disposition home or self-care (01) ==
LOC: LAB 15:51
PROVIDERS: PCP Nurse Practitioner Family; Visit Provider Student in an Organized Health Care Education/Training Program
DX: R79.89 Other specified abnormal findings of blood chemistry (principal); R94.6 Abnormal results of thyroid function studies
CPT/HCPCS: 36415; 84439; 84443

== ENCOUNTER 2025-06-22 07:39 | Day surgery (SDC) | payer MEDICARE, OTHER, SELFPAY ==
[2025-06-22] VITALS (14 sets, daily range): BP systolic 138–170; BP diastolic 78–96; PULSE 55–67; RESP 15–20; TEMP 36.1; O2SAT 91–98; BMI 28.0
--- NOTE | 2025-06-22 07:29 | IR_ITS ---
APPROVED REPORT Patient Location: Outpatient [employer]: NANDO Smith RT (R) PROCEDURES Left heart catheterization Left ventriculogram Selective coronary angiogram Selective engagement left internal mammary artery to the LAD Selective engagement of the saphenous vein graft to the circumflex artery Nonselective engagement of the saphenous vein graft to the right coronary Drug-eluting stent deployment to the ostial proximal circumflex artery Drug-eluting stent deployment to the ostial proximal LAD Bilateral selective renal angiography INDICATION Coronary artery disease, Angina pectoris, History of coronary bypass surgery, Abnormal Myoview, Renal artery stenosis, History of abdominal aortic aneurysm with stent grafting jailing the renal arteries, Renovascular hypertension suspected Informed consent was obtained prior to the procedure. COMPLICATIONS none Estimated Blood Loss: less than 10ml TECHNIQUE One percent lidocaine used to anesthetize the right groin. The right femoral artery was accessed via the Seldinger technique and a 5 Armenian sheath was placed in the right femoral artery. A JL 4, JR4 catheter were used to perform left heart catheterization, left ventriculogram selective coronary angiography as well as selective engagement of the 2 vein grafts and the left internal mammary artery. The JR4 catheter was used to perform bilateral selective renal angiography as well as engage the saphenous vein graft to the right coronary artery was not visualized however there appeared to be an ostial stump believed to be the vein graft which appeared to be ostially occluded. Following the diagnostic angiogram the 5 Armenian sheath was exchanged for a 6 Armenian sheath and therapeutic heparin was administered giving a therapeutic ACT. A JL 4 guide catheter was placed in the left main artery followed by Choice PT extra-support wire placed down the circumflex artery. A 3 mm x 15 mm Tioga frontier stent was placed in the ostial proximal segment at 16 markus reducing the stenosis. Distally there was a 50 to 60% transitional stenosis which appeared smooth most likely spasm however it was felt this should be managed medically and I chose not to stent it. The wire was pulled back and placed into the LAD which now had a 90% jailing. A wire was placed in the LAD and a 3 mm x 12 mm compliant balloon was used to open the struts going into the LAD. A 3 mm x 15 mm Tioga frontier stent was placed in the ostial proximal LAD and deployed at 20 markus reducing the stenosis to 0%. Excellent angiograph results were obtained before and after the procedure. IMANI-3 flow was present down the circumflex artery before and after the procedure. Technically IMANI-3 flow was present down the LAD before and after the procedure however IMANI flow does not apply to bypass grafts. At the end of procedure the groin was reprepped closure change sheath was removed good hemostasis was achieved using Perclose device patient was transferred to the postop boarding in stable condition ANGIOGRAPHIC RESULTS The left main artery Normal The left anterior descending artery Initially had an ostial 20% stenosis. The vessel was patent and appeared to be occluded at mid vessel after a diagonal artery with no angiographic evidence of competitive flow from the DO graft The circumflex artery Has an ostial 70% stenosis and then gives rise to a small ramus intermedius. The mid circumflex artery has 60% concentric in-stent restenosis and supplies a terminal obtuse marginal artery' The right coronary artery Proximally occluded and fills via [id number] collaterals The [place] ventriculogram reveals Preserved at 50% The left ventricular end-diastolic pressure 10 mmHg DO to LAD widely patent Saphenous to circumflex artery ostially occluded Presumed saphenous vein graft ostially occluded to the right coronary artery Left renal artery singular normal and is jailed within an aortic aneurysm stent graft with excellent flow Right renal artery is singular and also jailed within an aortic stent graft and has an ostial 40 to 50% stenosis IMPRESSION Coronary artery disease as described above Successful stenting of the circumflex artery severe ostial stenosis reduced to 0% with 1 drug-eluting stent Successful stenting of the ostial proximal LAD severe disease reduced to 0% with 1 drug-eluting stent Chronically occluded right coronary artery which fills via [id number] collaterals Presumed occlusion of the saphenous vein graft to the right coronary artery Patent left renal artery Jailed right renal artery creating a 50% stenosis which is best managed medically given the presence of an aortic stent graft in the vessel. Furthermore patient's blood pressure is normal during cardiac catheterization and creatinine is normal PLAN 1. Dual antiplatelet therapy 2. Medical management for coronary artery disease 3. Medical management for renal artery stenosis given the renal arteries are jailed within stent grafts. It is unlikely the degree of stenosis in the right renal artery is producing renovascular hypertension 4. Cardiac rehabilitation 5. Avoidance of tobacco products 6. Risk factor modification 7. LDL less than 55 to be achieved with high intensity statin Electronically signed by : Junior Becerra MD 06/22/2025 11:21:58
[2025-06-22 08:32] LABS: Hematocrit 41.9 % (42.0-52.0); Hemoglobin 14.6 g/dL (14.1-18.0); Immature Granulocytes % 0.4 %; Mean Corpuscular HGB Conc 34.8 g/dL (31.8-35.4); Mean Corpuscular Hemoglobin 31.8 pg (27.0-31.2); Mean Corpuscular Volume 91.3 fl (80-94); Nucleated Red Blood Cells % 0 %; Platelet Count 215 K/mm3 (142-424); Red Blood Count 4.59 M/mm3 (4.60-6.20); Red Cell Distribution Width-SD 40.5 fL; White Blood Count 7.6 K/mm3 (4.8-10.8)
[2025-06-22 08:37] LABS: Chloride 105 mmol/L (98-107); Sodium 139 mmol/L (136-145)
[2025-06-22 08:38] LABS: Potassium 4.2 mmoL/L (3.5-5.1)
[2025-06-22 08:40] LABS: Blood Urea Nitrogen 12 mg/dl (9-20); Creatinine Clearance Estimated 82 mL/min (50-200); Creatinine,Serum 0.90 mg/dl (0.66-1.25); Estimated Glomerular Filt Rate 85 ml/min (>60); GFR (African American) 102 ML/MIN (>60)
[2025-06-22 08:41] LABS: Anion Gap 12.2 mEq/L (5-15); Calcium 9.2 mg/dl (8.4-10.2); Carbon Dioxide 26 mmol/L (22.0-30.0); Glucose 112 mg/dl (74-100)
[2025-06-22] MEDS: HEPARIN 1,000 UNITS/500ML NS (CATH LAB) 3000 UNIT IV (09:26)
[2025-06-22] MEDS: LIDOCAINE 1% 10ML MDV 10 ML IJ (09:26)
[2025-06-22] MEDS: 0.9 % SODIUM CHLORIDE 500 ML 25 ML IV (09:27)
[2025-06-22] MEDS: MIDAZOLAM HCL 1MG/ML 5ML VIAL 1 MG IV (09:29)
[2025-06-22] MEDS: FENTANYL 100MCG/2ML VIAL 50 MCG IV (09:30)
[2025-06-22] MEDS: HEPARIN 1,000 UNITS/ML 10ML VIAL (CATH LAB) 5000 UNIT IV (10:56)
--- NOTE | 2025-06-22 11:28 | SUR.PHASEII ---
patient unable to tolerate jordan/arb due to allergy-none to be ordered at this time per MD
[2025-06-22] MEDS: ONDANSETRON 4MG/2ML VIAL 4 MG IV (13:28)
== END 2025-06-22 15:26 | disposition home or self-care (01) ==
PROVIDERS: PCP Nurse Practitioner Family; Visit Provider Internal Medicine
PROC: 4A023N7 Measurement of Cardiac Sampling and Pressure, Left Heart, Percutaneous Approach (ICD-10-PCS; CPT 93452; principal; 2025-06-22 08:15)
DX: I25.118 Atherosclerotic heart disease of native coronary artery with other forms of angina pectoris (principal); R94.31 Abnormal electrocardiogram [ECG] [EKG]; R93.1 Abnormal findings on diagnostic imaging of heart and coronary circulation; I70.1 Atherosclerosis of renal artery; R06.00 Dyspnea, unspecified; I50.32 Chronic diastolic (congestive) heart failure; I11.0 Hypertensive heart disease with heart failure; I65.23 Occlusion and stenosis of bilateral carotid arteries; I73.9 Peripheral vascular disease, unspecified; E78.019 Familial hypercholesterolemia, unspecified; Z95.828 Presence of other vascular implants and grafts; Z95.1 Presence of aortocoronary bypass graft; Z87.891 Personal history of nicotine dependence; Z79.82 Long term (current) use of aspirin; Z79.02 Long term (current) use of antithrombotics/antiplatelets; Z79.899 Other long term (current) drug therapy; Z88.0 Allergy status to penicillin; Z88.2 Allergy status to sulfonamides; Z88.8 Allergy status to other drugs, medicaments and biological substances
CPT/HCPCS: 36252; 80048; 85025; 92928; 93459; 99152; 99153; C1725; C1760; C1769; C1874; C1887; C1894; C9600; J1200; J1644; J2003; J2405; J3010; J7040; Q9967

== ENCOUNTER 2025-06-25 11:53 | Outpatient (CLI) | payer MEDICARE, OTHER, SELFPAY ==
[2025-06-25 12:56] LABS: Hematocrit 47.1 % (42.0-52.0); Hemoglobin 15.8 g/dL (14.1-18.0); Immature Granulocytes % 0.5 %; Mean Corpuscular HGB Conc 33.5 g/dL (31.8-35.4); Mean Corpuscular Hemoglobin 31.4 pg (27.0-31.2); Mean Corpuscular Volume 93.6 fl (80-94); Nucleated Red Blood Cells % 0 %; Platelet Count 270 K/mm3 (142-424); Red Blood Count 5.03 M/mm3 (4.60-6.20); Red Cell Distribution Width-SD 42.2 fL; White Blood Count 11.4 K/mm3 (4.8-10.8)
[2025-06-25 13:32] LABS: Chloride 99 mmol/L (98-107); Sodium 140 mmol/L (136-145)
[2025-06-25 13:33] LABS: Potassium 4.3 mmoL/L (3.5-5.1)
[2025-06-25 13:35] LABS: Blood Urea Nitrogen 13 mg/dl (9-20); Creatinine,Serum 1.00 mg/dl (0.66-1.25); Estimated Glomerular Filt Rate 75 ml/min (>60); GFR (African American) 91 ML/MIN (>60)
[2025-06-25 13:36] LABS: Anion Gap 15.3 mEq/L (5-15); Calcium 9.9 mg/dl (8.4-10.2); Carbon Dioxide 30 mmol/L (22.0-30.0); Glucose 84 mg/dl (74-100)
== END 2025-06-25 23:59 | disposition home or self-care (01) ==
LOC: LAB 11:54
PROVIDERS: PCP Nurse Practitioner Family; Visit Provider Internal Medicine
DX: I25.10 Atherosclerotic heart disease of native coronary artery without angina pectoris (principal)
CPT/HCPCS: 36415; 80048; 85025

== ENCOUNTER → 2025-07-14 12:46 | Outpatient (RCR) | payer MEDICARE, OTHER, SELFPAY | LOC: CR 12:46 | PROVIDERS: PCP Nurse Practitioner Family; Visit Provider Internal Medicine | DX: Z48.812 Encounter for surgical aftercare following surgery on the circulatory system (principal); Z95.5 Presence of coronary angioplasty implant and graft | CPT/HCPCS: 93798 ==